=== PATIENT | male | born 1970 | race Caucasian/White ===

== ENCOUNTER 2017-01-09 13:56 | Emergency (ER) | payer OTHER ==
[~2017-01-09] VITALS: Ht 175.3 cm; Wt 115.0 kg
[~2017-01-09 13:56] MED LIST: ALBU8HFA4 IH; ASPI81TA2 PO; ATOR10TA84 PO; CARV6 PO; INSLAN SQ; LISI20TA PO; PRED10 PO
[2017-01-09 15:01] LABS: GLUCOSE,POINT OF CARE 346 MG/DL (70-110)
[2017-01-09 18:52] LABS: GLUCOSE,POINT OF CARE 249 MG/DL (70-110)
[2017-01-09 20:31] VITALS: BP 139/81
[2017-01-09] MEDS ORDERED: ACETAMINOPHEN 500 MG TABLET PO ONE (20:45)
== END 2017-01-09 20:58 | disposition home or self-care (01) ==
LOC: EMS 13:58
DX: S80.01XA Contusion of right knee, initial encounter (principal); S90.122A Contusion of left lesser toe(s) without damage to nail, initial encounter; I10 Essential (primary) hypertension; E78.00 Pure hypercholesterolemia, unspecified; J45.909 Unspecified asthma, uncomplicated; F17.210 Nicotine dependence, cigarettes, uncomplicated; E11.9 Type 2 diabetes mellitus without complications; Z79.82 Long term (current) use of aspirin; Z79.4 Long term (current) use of insulin; V09.9XXA Pedestrian injured in unspecified transport accident, initial encounter; Y93.89 Activity, other specified; Y92.89 Other specified places as the place of occurrence of the external cause; Y99.8 Other external cause status
CPT/HCPCS: 82962; 84550; 99285

== ENCOUNTER 2019-10-02 00:52 | Inpatient (IN) | payer OTHER ==
[~2019-10-02] VITALS: Ht 175.3 cm; Wt 110.0 kg
[~2019-10-02 00:52] MED LIST changes: -ASPI81TA2 PO; +ASPI81TA39 PO; +FLUT1BLS IH; +IPRA4AER IH
[2019-10-02] MEDS ORDERED: IPRATROPIUM BROMIDE 0.5 MG/2.5 ML NEB SOLUTION NEB ONE (01:15)
[2019-10-02] MEDS ORDERED: ACETAMINOPHEN 500 MG TABLET PO ONE (01:15)
[2019-10-02] MEDS ORDERED: ALBUTEROL SULFATE 2.5 MG/0.5 ML NEB SOLUTION NEB ONE (01:15)
[2019-10-02] MEDS ORDERED: 0.9% SODIUM CHLORIDE 5 ML NEB SOLUTION NEB ONE (01:21)
[2019-10-02 01:34] LABS: BASOPHILS % (AUTO) 0.8 % (0.0-2.0); EOSINOPHILS % (AUTO) 2.2 % (1.0-6.0); HEMATOCRIT 46.5 % (41-53); HEMOGLOBIN 15.4 g/dL (13.5-17.5); LYMPHOCYTES # (AUTO) 3.1 K/uL (1.0-4.8); LYMPHOCYTES % (AUTO) 30.8 % (22.0-44.0); MEAN CORPUSCULAR HGB CONC 33.1 G/dL (31.0-37.0); MEAN CORPUSCULAR VOLUME 91 fL (80-100); MONOCYTES % (AUTO) 10.1 % (2.0-9.0); NEUTROPHILS # (AUTO) 5.7 K/uL (1.8-7.7); NEUTROPHILS % (AUTO) 56.1 % (40.0-70.0); PLATELET COUNT (AUTO) 205 K/uL (150-450); RED BLOOD CELL COUNT(AUTO) 5.13 MIL/uL (4.50-5.90); RED CELL DISTRIBUTION WIDTH 14.2 % (11.5-14.5)
[2019-10-02 01:44] LABS: CALCIUM, TOTAL 8.5 mg/dL (8.8-10.5); CREATININE 2.09 mg/dL (0.60-1.30); POTASSIUM 3.9 mmol/L (3.5-5.1)
[2019-10-02 01:48] LABS: PROTHROMBIN TIME 9.8 SEC (9.4-11.6)
[2019-10-02 02:11] LABS: ALBUMIN 3.6 g/dL (3.4-5.0); BILIRUBIN,TOTAL 0.4 mg/dL (0.1-1.0); TOTAL PROTEIN, SERUM 7.3 g/dL (6.4-8.2)
[2019-10-02 02:13] LABS: APPEARANCE,URINE CLEAR (CLEAR); BILIRUBIN,URINE NEGATIVE (NEGATIVE); GLUCOSE, URINE (UA) 500 mg/dL (NEGATIVE); KETONES,URINE NEGATIVE (NEGATIVE); LEUKOCYTE ESTERASE ,URINE NEGATIVE (NEGATIVE); NITRATE,URINE NEGATIVE (NEGATIVE); OCCULT BLOOD,URINE NEGATIVE (NEGATIVE); PROTEIN,URINE SEE CONFIRM (NEGATIVE); UROBILINOGEN,URINE 0.2 mg/dL (<=1.0)
[2019-10-02 02:15] LABS: BACTERIA,URINE None Seen /HPF (None Seen); RBC,URINE None Seen /HPF (0-2); WBC,URINE 0-2 /HPF (0-5)
[2019-10-02 02:16] LABS: SQUAMOUS EPITHELIAL CELL,UR Rare /LPF (None Seen); SULFOSALICYLIC ACID,URINE Trace (Negative)
[2019-10-02] MEDS ORDERED: ASPIRIN 325 MG TABLET PO ONE (03:00)
[2019-10-02] MEDS ORDERED: 0.9% SODIUM CHLORIDE 10 ML SYRINGE IVP PRN (06:15)
[2019-10-02] MEDS ORDERED: ONDANSETRON HCL 4 MG/2 ML VIAL IVP PRN ×2 (06:15→06:30)
[2019-10-02] MEDS ORDERED: ACETAMINOPHEN 325 MG TABLET PO PRN ×2 (06:15→06:30)
[2019-10-02] MEDS ORDERED: IPRATROPIUM BROMIDE 0.5 MG/2.5 ML NEB SOLUTION NEB PRN (06:30)
[2019-10-02] MEDS ORDERED: DEXTROSE 50%-WATER 25 GM/50 ML SYRINGE IVP PRN ×2 (06:30→12:45)
[2019-10-02] MEDS ORDERED: MORPHINE SULFATE 2 MG/ML SYRINGE IVP PRN (06:30)
[2019-10-02] MEDS ORDERED: MAGNESIUM HYDROXIDE SUSPENSION 30 ML UDCUP PO PRN (06:30)
[2019-10-02] MEDS ORDERED: HYDROCODONE/ACETAMINOPHEN 5-325 MG TABLET PO PRN (06:30)
[2019-10-02] MEDS ORDERED: ZOLPIDEM TARTRATE 10 MG TABLET PO PRN (06:30)
[2019-10-02 10:29] VITALS: BP 108/68
[2019-10-02] MEDS: DOCUSATE SODIUM 100 MG CAPSULE PO SCH ×2 (10:29→23:02)
[2019-10-02] MEDS: ASPIRIN 81 MG CHEWABLE TABLET PO SCH (10:29)
[2019-10-02] MEDS: ATORVASTATIN CALCIUM 10 MG TABLET PO SCH (10:30)
[2019-10-02] MEDS: LISINOPRIL 20 MG TABLET PO SCH (10:30)
[2019-10-02] MEDS: CARVEDILOL 6.25 MG TABLET PO SCH ×2 (10:30→23:03)
[2019-10-02] MEDS: FLUTICASONE/VILANTEROL 200-25 MCG/INH INHALER [14] IH SCH (10:32)
[2019-10-02] MEDS: INSULIN GLARGINE,HUM.REC.ANLOG 100 UNITS/ML SQ SCH (10:37)
[2019-10-02 11:30] VITALS: BP 129/75
[2019-10-02] MEDS: NITROGLYCERIN 2% (1 GM=INCH) PACKET TP SCH ×2 (12:02→17:54)
[2019-10-02] MEDS: INSULIN LISPRO 100 UNITS/ML SQ PRN ×2 (13:23→17:58)
[2019-10-02] MEDS: GABAPENTIN 300 MG CAPSULE PO SCH ×2 (15:10→23:02)
[2019-10-02] MEDS: NICOTINE 21 MG/24 HOUR PATCH TD SCH (15:10)
[2019-10-02 15:35] VITALS: BP 132/69
[2019-10-02 17:55] LABS: GLUCOMETER DEV NAME(LOC) 5S.2A; GLUCOSE,POINT OF CARE 315 MG/DL (70-110)
[2019-10-02 20:18] VITALS: BP 152/71
[2019-10-02 20:59] LABS: AMPHET/METH SCREEN,URINE POSITIVE (NEGATIVE); BARBITURATE SCREEN, URINE NEGATIVE (NEGATIVE); BENZODIAZEPINES SCREEN,URINE NEGATIVE (NEGATIVE); CANNABINOID SCREEN,URINE NEGATIVE (NEGATIVE); COCAINE SCREEN,URINE NEGATIVE (NEGATIVE); METHADONE SCREEN, URINE NEGATIVE (NEGATIVE); OPIATE SCREEN,URINE NEGATIVE (NEGATIVE)
[2019-10-02 21:00] LABS: PHENCYCLIDINE SCREEN,URINE NEGATIVE (NEGATIVE)
[2019-10-02 22:31] LABS: GLUCOMETER DEV NAME(LOC) 5S.1; GLUCOSE,POINT OF CARE 140 MG/DL (70-110)
[2019-10-02 22:31] LABS: GLUCOMETER DEV NAME(LOC) 5S.1; GLUCOSE,POINT OF CARE 286 MG/DL (70-110)
[2019-10-02 23:19] LABS: GLUCOMETER DEV NAME(LOC) 5S.1; GLUCOSE,POINT OF CARE 178 MG/DL (70-110)
[2019-10-03 00:01] VITALS: BP 128/59
[2019-10-03 05:13] VITALS: BP 133/78
[2019-10-03] MEDS: NITROGLYCERIN 2% (1 GM=INCH) PACKET TP SCH ×4 (06:00→16:32)
[2019-10-03 06:37] LABS: GLUCOMETER DEV NAME(LOC) 5S.1; GLUCOSE,POINT OF CARE 202 MG/DL (70-110)
[2019-10-03 07:17] LABS: BASOPHILS % (AUTO) 0.6 % (0.0-2.0); EOSINOPHILS % (AUTO) 2.7 % (1.0-6.0); HEMATOCRIT 43.7 % (41-53); HEMOGLOBIN 14.8 g/dL (13.5-17.5); LYMPHOCYTES # (AUTO) 1.8 K/uL (1.0-4.8); LYMPHOCYTES % (AUTO) 27.8 % (22.0-44.0); MEAN CORPUSCULAR HEMOGLOBIN 30.7 pg (26.0-34.0); MEAN CORPUSCULAR HGB CONC 33.9 G/dL (31.0-37.0); MEAN CORPUSCULAR VOLUME 91 fL (80-100); MONOCYTES # (AUTO) 0.6 K/uL (0.1-1.0); MONOCYTES % (AUTO) 10.1 % (2.0-9.0); NEUTROPHILS # (AUTO) 3.8 K/uL (1.8-7.7); NEUTROPHILS % (AUTO) 58.8 % (40.0-70.0); PLATELET COUNT (AUTO) 167 K/uL (150-450); RED BLOOD CELL COUNT(AUTO) 4.81 MIL/uL (4.50-5.90)
[2019-10-03 07:27] VITALS: BP 108/58
[2019-10-03 07:42] LABS: ALANINE AMINOTRANSFERASE 18 U/L (12-78); ALBUMIN 2.7 g/dL (3.4-5.0); ALKALINE PHOSPHATASE 111 U/L (46-116); ANION GAP 5 mmol/L (8-16); ASPARTATE AMINOTRANSFERASE 14 U/L (15-37); BILIRUBIN,TOTAL 0.3 mg/dL (0.1-1.0); CALCIUM, TOTAL 8.2 mg/dL (8.8-10.5); CARBON DIOXIDE 29 mmol/L (22-29); CHLORIDE 104 mmol/L (98-107); CHOL/HDL RATIO 3.7 (4.2-7.3); CHOLESTEROL 154 mg/dL (131-200); CREATININE 1.09 mg/dL (0.60-1.30); GLOMERULAR FILTR. RATE CALC > 60 mL/min (>60); GLUCOSE,RANDOM 218 mg/dL (70-110); HDL CHOLESTEROL 42 mg/dL (40-60); LDL CHOL (CALC.) 86 mg/dL (0-130); POTASSIUM 3.9 mmol/L (3.5-5.1); SODIUM SERUM 138 mmol/L (136-145); TOTAL PROTEIN, SERUM 5.7 g/dL (6.4-8.2); TRIGLYCERIDES 128 mg/dL (15-150); UREA NITROGEN, BLOOD 20 mg/dL (7-18)
[2019-10-03] MEDS: ASPIRIN 81 MG CHEWABLE TABLET PO SCH (08:33)
[2019-10-03] MEDS: NICOTINE 21 MG/24 HOUR PATCH TD SCH (08:33)
[2019-10-03] MEDS: DOCUSATE SODIUM 100 MG CAPSULE PO SCH (08:33)
[2019-10-03] MEDS: CARVEDILOL 6.25 MG TABLET PO SCH (08:33)
[2019-10-03] MEDS: ATORVASTATIN CALCIUM 10 MG TABLET PO SCH (08:33)
[2019-10-03] MEDS: GABAPENTIN 300 MG CAPSULE PO SCH ×2 (08:33→16:31)
[2019-10-03] MEDS: FLUTICASONE/VILANTEROL 200-25 MCG/INH INHALER [14] IH SCH (08:34)
[2019-10-03] MEDS: LISINOPRIL 20 MG TABLET PO SCH (08:37)
[2019-10-03] MEDS: INSULIN GLARGINE,HUM.REC.ANLOG 100 UNITS/ML SQ SCH (08:37)
[2019-10-03 08:53] LABS: GLUCOMETER DEV NAME(LOC) 5S.1; GLUCOSE,POINT OF CARE 215 MG/DL (70-110)
[2019-10-03] MEDS: INSULIN LISPRO 100 UNITS/ML SQ PRN ×2 (11:39→18:08)
[2019-10-03 11:52] VITALS: BP 146/71
[2019-10-03 15:14] VITALS: BP 138/66
[2019-10-03 17:15] LABS: GLUCOMETER DEV NAME(LOC) 5N.2; GLUCOSE,POINT OF CARE 265 MG/DL (70-110)
[2019-10-03 18:17] LABS: GLUCOMETER DEV NAME(LOC) 5N.1; GLUCOSE,POINT OF CARE 287 MG/DL (70-110)
== END 2019-10-03 19:00 | disposition home or self-care (01) | DRG 812 ==
LOC: EMS 00:54 → 5S 05:17
PROVIDERS: ADMIT Hospitalist; ATTEND Hospitalist
DX: T43.621A Poisoning by amphetamines, accidental (unintentional), initial encounter (principal); N17.9 Acute kidney failure, unspecified; E11.40 Type 2 diabetes mellitus with diabetic neuropathy, unspecified; I24.8 Other forms of acute ischemic heart disease; E66.01 Morbid (severe) obesity due to excess calories; I11.0 Hypertensive heart disease with heart failure; I50.9 Heart failure, unspecified; F19.10 Other psychoactive substance abuse, uncomplicated; J44.9 Chronic obstructive pulmonary disease, unspecified; E78.00 Pure hypercholesterolemia, unspecified; E78.5 Hyperlipidemia, unspecified; F10.10 Alcohol abuse, uncomplicated; F15.10 Other stimulant abuse, uncomplicated; F17.200 Nicotine dependence, unspecified, uncomplicated; I25.10 Atherosclerotic heart disease of native coronary artery without angina pectoris; F32.9 Major depressive disorder, single episode, unspecified; Z79.4 Long term (current) use of insulin; Z91.14 Patient's other noncompliance with medication regimen; Z91.19 Patient's noncompliance with other medical treatment and regimen; Z95.5 Presence of coronary angioplasty implant and graft; Z79.899 Other long term (current) drug therapy; Z68.35 Body mass index [BMI] 35.0-35.9, adult; Y90.9 Presence of alcohol in blood, level not specified
CPT/HCPCS: 80307; 83735; 93005; 93306; 93880; 93925; 93970; 94640; G0480; J1815

== ENCOUNTER 2020-02-09 14:15 | Emergency (ER) | payer OTHER ==
[~2020-02-09] VITALS: Ht 175.3 cm; Wt 113.6 kg
[~2020-02-09 14:15] MED LIST changes: -INSLAN SQ; -IPRA4AER IH; -LISI20TA PO; -PRED10 PO
[2020-02-09] MEDS ORDERED: ACETAMINOPHEN 500 MG TABLET PO ONE (15:45)
[2020-02-09] MEDS ORDERED: INSULIN REGULAR, HUMAN 100 UNITS/ML SQ ONE (15:45)
[2020-02-09 16:20] VITALS: BP 144/93
[2020-02-09 17:39] LABS: GLUCOSE,POINT OF CARE 318 MG/DL (70-110)
[2020-02-09 17:39] LABS: GLUCOSE,POINT OF CARE 282 MG/DL (70-110)
== END 2020-02-09 18:15 | disposition home or self-care (01) ==
LOC: EMS 14:16
DX: S90.412A Abrasion, left great toe, initial encounter (principal); M25.462 Effusion, left knee; E11.65 Type 2 diabetes mellitus with hyperglycemia; F17.210 Nicotine dependence, cigarettes, uncomplicated; J45.909 Unspecified asthma, uncomplicated; I25.10 Atherosclerotic heart disease of native coronary artery without angina pectoris; F32.9 Major depressive disorder, single episode, unspecified; E11.9 Type 2 diabetes mellitus without complications; I11.9 Hypertensive heart disease without heart failure; E78.00 Pure hypercholesterolemia, unspecified; Z79.82 Long term (current) use of aspirin; X58.XXXA Exposure to other specified factors, initial encounter; Y93.89 Activity, other specified; Y92.89 Other specified places as the place of occurrence of the external cause; Y99.8 Other external cause status
CPT/HCPCS: 71045; 73562; 82962; 96372; 99284; 99406; J1815

== ENCOUNTER 2020-03-03 12:26 | Emergency (ER) | payer OTHER ==
[~2020-03-03] VITALS: Ht 175.3 cm; Wt 115.9 kg
[2020-03-03] MEDS ORDERED: ALBUTEROL SULFATE HFA 90 MCG/PUFF 8 GM INHALER IH ONE (14:00)
[2020-03-03] MEDS ORDERED: KETOROLAC TROMETHAMINE 60 MG/2 ML VIAL IM ONE (14:00)
[2020-03-03] MEDS ORDERED: FLUT1AER IH (14:05)
[2020-03-03] MEDS ORDERED: ALBU8HFA IH (14:05)
[2020-03-03] MEDS ORDERED: HYDR25TA84 PO (14:05)
[2020-03-03] MEDS ORDERED: POTA8TAB71 PO (14:05)
[2020-03-03] MEDS ORDERED: LISI30TA4 PO (14:05)
[2020-03-03] MEDS ORDERED: FURO20TA4 PO (14:05)
[2020-03-03] MEDS ORDERED: ASPI-1111 PO (14:05)
[2020-03-03 14:23] VITALS: BP 149/82
== END 2020-03-03 15:48 | disposition home or self-care (01) ==
LOC: EMS 12:30
DX: S20.211A Contusion of right front wall of thorax, initial encounter (principal); F17.210 Nicotine dependence, cigarettes, uncomplicated; F15.90 Other stimulant use, unspecified, uncomplicated; I11.9 Hypertensive heart disease without heart failure; E78.00 Pure hypercholesterolemia, unspecified; E11.9 Type 2 diabetes mellitus without complications; I25.10 Atherosclerotic heart disease of native coronary artery without angina pectoris; J44.9 Chronic obstructive pulmonary disease, unspecified; W22.8XXA Striking against or struck by other objects, initial encounter; Y93.89 Activity, other specified; Y92.89 Other specified places as the place of occurrence of the external cause; Y99.8 Other external cause status
CPT/HCPCS: 71101; 82962; 94640; 96372; 99283; G0238; J1885; J3535

== ENCOUNTER 2020-03-08 15:08 | Emergency (ER) | payer OTHER ==
[~2020-03-08] VITALS: Ht 175.3 cm; Wt 120.5 kg
[~2020-03-08 15:08] MED LIST changes: +ALBU8HFA IH; -ALBU8HFA4 IH; +ASPI-1111 PO; -ASPI81TA39 PO; +FLUT1AER IH; -FLUT1BLS IH; +FURO20TA4 PO; +HYDR25TA84 PO; +LISI30TA4 PO; +POTA8TAB71 PO
[2020-03-08] MEDS ORDERED: INSULIN REGULAR, HUMAN 100 UNITS/ML IVP ONE (15:45)
[2020-03-08] MEDS ORDERED: KETOROLAC TROMETHAMINE 30 MG/ML VIAL IVP ONE (15:45)
[2020-03-08] MEDS ORDERED: ACETAMINOPHEN 500 MG TABLET PO ONE (15:45)
[2020-03-08] MEDS ORDERED: LIDOCAINE 5% TRANSDERMAL PATCH TD ONE (15:45)
[2020-03-08] MEDS ORDERED: SODIUM CHLORIDE 0.9% 1,000 ML IV ONE (15:45)
[2020-03-08 15:48] LABS: GLUCOSE,POINT OF CARE 405 MG/DL (70-110)
[2020-03-08 16:13] VITALS: BP 162/92
[2020-03-08 17:45] LABS: GLUCOSE,POINT OF CARE 190 MG/DL (70-110)
== END 2020-03-08 17:59 | disposition home or self-care (01) ==
LOC: EMS 15:12
DX: R07.81 Pleurodynia (principal); I10 Essential (primary) hypertension; E11.65 Type 2 diabetes mellitus with hyperglycemia; J45.909 Unspecified asthma, uncomplicated; I25.10 Atherosclerotic heart disease of native coronary artery without angina pectoris; F32.9 Major depressive disorder, single episode, unspecified; I11.9 Hypertensive heart disease without heart failure; E78.00 Pure hypercholesterolemia, unspecified; F17.210 Nicotine dependence, cigarettes, uncomplicated; F19.90 Other psychoactive substance use, unspecified, uncomplicated; Z79.82 Long term (current) use of aspirin; Z79.899 Other long term (current) drug therapy
CPT/HCPCS: 82962; 96361; 96374; 96375; 99284; 99406; J1815; J1885; J7030

== ENCOUNTER 2021-09-01 18:52 | Inpatient (IN) | payer OTHER ==
[~2021-09-01] VITALS: Ht 175.3 cm; Wt 116.5 kg
[~2021-09-01 18:52] MED LIST changes: -ASPI-1111 PO; +ASPI-1450 PO; -ATOR10TA84 PO; +ATOR20TA65 PO; +BUME1TAB6 PO; -CARV6 PO; -FURO20TA4 PO; -HYDR25TA84 PO; +INSLAN SQ; +ISOS1TAB2 PO; -LISI30TA4 PO; +LOSA25TA2 PO; +PANT-31 PO; +SYRI-590 SQ
[2021-09-01] MEDS ORDERED: ACETAMINOPHEN 500 MG TABLET PO ONE (19:30)
[2021-09-01 19:56] LABS: COVID AG,FIA SOURCE NASOPHARYNGEAL
[2021-09-01 19:59] LABS: BASOPHILS % (AUTO) 0.3 % (0.0-2.0); EOSINOPHILS % (AUTO) 0 % (1.0-6.0); HEMATOCRIT 52.6 % (41-53); HEMOGLOBIN 16.5 g/dL (13.5-17.5); LYMPHOCYTES # (AUTO) 1.7 K/uL (1.0-4.8); MEAN CORPUSCULAR HEMOGLOBIN 28.8 pg (26.0-34.0); MEAN CORPUSCULAR HGB CONC 31.4 G/dL (31.0-37.0); MEAN CORPUSCULAR VOLUME 92 fL (80-100); MONOCYTES # (AUTO) 1.4 K/uL (0.1-1.0); MONOCYTES % (AUTO) 9.1 % (2.0-9.0); NEUTROPHILS # (AUTO) 12.4 K/uL (1.8-7.7); NEUTROPHILS % (AUTO) 79.6 % (40.0-70.0); PLATELET COUNT (AUTO) 171 K/uL (150-450); RED BLOOD CELL COUNT(AUTO) 5.74 MIL/uL (4.50-5.90); RED CELL DISTRIBUTION WIDTH 15.1 % (11.5-14.5)
[2021-09-01 20:15] LABS: D-DIMER 3.41 mg/L FEU (0.00-0.50); INR 1.2 (0.9-1.1); PROTHROMBIN TIME 12.2 SEC (9.4-11.6)
[2021-09-01] MEDS ORDERED: SODIUM CHLORIDE 0.9% 1,000 ML IV ONE (20:30)
[2021-09-01] MEDS ORDERED: VANCOMYCIN HCL 1 GM/D5% WATER 200 ML IV ONE (20:30)
[2021-09-01 20:33] LABS: ALBUMIN 2.9 g/dL (3.4-5.0); BILIRUBIN,TOTAL 1.4 mg/dL (0.1-1.0); CALCIUM, TOTAL 8.9 mg/dL (8.8-10.5); CREATININE 2.07 mg/dL (0.60-1.30); PHOSPHORUS 2.9 mg/dL (2.5-4.9); POTASSIUM 4.5 mmol/L (3.5-5.1); TOTAL PROTEIN, SERUM 9.1 g/dL (6.4-8.2)
[2021-09-01 21:08] LABS: ERYTHROCYTE SEDIMENTATION RATE 36 MM/HR (0-15)
[2021-09-01] MEDS ORDERED: ACETAMINOPHEN 325 MG TABLET PO PRN ×2 (21:15→21:45)
[2021-09-01] MEDS ORDERED: ONDANSETRON HCL 4 MG/2 ML VIAL IVP PRN ×2 (21:15→21:45)
[2021-09-01] MEDS ORDERED: LORazepam 2 MG/ML VIAL IVP PRN (21:45)
[2021-09-01] MEDS ORDERED: DEXTROSE 50%-WATER 25 GM/50 ML SYRINGE IVP PRN (21:45)
[2021-09-01 22:20] VITALS: BP 125/73
[2021-09-01] MEDS: INSULIN LISPRO 100 UNITS/ML SQ PRN (22:26)
[2021-09-01] MEDS: FUROSEMIDE 20 MG/2 ML VIAL IVP SCH (22:26)
[2021-09-01] MEDS: ASPIRIN 81 MG CHEWABLE TABLET PO SCH (22:28)
[2021-09-01] MEDS: ZOLPIDEM TARTRATE 5 MG TABLET PO PRN (22:56)
[2021-09-01 23:46] VITALS: BP 135/71
[2021-09-01] MEDS: HEPARIN SODIUM,PORCINE 5,000 UNITS/ML VIAL SQ SCH (23:47)
[2021-09-02] MEDS ORDERED: VANCOMYCIN HCL 1 GM/D5% WATER 200 ML IV ONE
[2021-09-02 03:58] VITALS: BP 110/76
[2021-09-02 04:14] LABS: GLUCOMETER DEV NAME(LOC) 5N.1C; GLUCOSE,POINT OF CARE 246 MG/DL (70-110)
[2021-09-02] MEDS: OxyCODONE HCL/ACETAMINOPHEN 5-325 MG TABLET PO PRN ×2 (06:12→20:30)
[2021-09-02] MEDS: INSULIN LISPRO 100 UNITS/ML SQ PRN ×4 (06:13→20:35)
[2021-09-02 07:04] LABS: CALCIUM, TOTAL 8.4 mg/dL (8.8-10.5); CREATININE 2.08 mg/dL (0.60-1.30); POTASSIUM 4.2 mmol/L (3.5-5.1)
[2021-09-02 07:23] VITALS: BP 103/71
[2021-09-02 08:03] LABS: GLUCOMETER DEV NAME(LOC) 5S.1; GLUCOSE,POINT OF CARE 207 MG/DL (70-110)
[2021-09-02] MEDS: HEPARIN SODIUM,PORCINE 5,000 UNITS/ML VIAL SQ SCH ×3 (08:40→23:42)
[2021-09-02] MEDS: VANCOMYCIN HCL 750 MG in DEXTROSE 5%-WATER 250 ML IV SCH ×2 (08:40→19:51)
[2021-09-02] MEDS: DOCUSATE SODIUM 100 MG CAPSULE PO SCH ×2 (08:40→19:51)
[2021-09-02] MEDS: FAMOTIDINE 20 MG TABLET PO SCH (08:40)
[2021-09-02] MEDS: FUROSEMIDE 20 MG/2 ML VIAL IVP SCH ×2 (08:40→19:50)
[2021-09-02] MEDS: MORPHINE SULFATE 2 MG/ML SYRINGE IVP PRN ×2 (11:22→15:59)
[2021-09-02 11:48] VITALS: BP 108/69
[2021-09-02 11:55] LABS: AMPHET/METH SCREEN,URINE NEGATIVE (NEGATIVE); BARBITURATE SCREEN, URINE NEGATIVE (NEGATIVE); BENZODIAZEPINES SCREEN,URINE NEGATIVE (NEGATIVE); CANNABINOID SCREEN,URINE NEGATIVE (NEGATIVE); COCAINE SCREEN,URINE NEGATIVE (NEGATIVE); METHADONE SCREEN, URINE NEGATIVE (NEGATIVE); OPIATE SCREEN,URINE NEGATIVE (NEGATIVE)
[2021-09-02 11:57] LABS: PHENCYCLIDINE SCREEN,URINE NEGATIVE (NEGATIVE)
[2021-09-02 12:10] LABS: GLUCOMETER DEV NAME(LOC) 5N.1C; GLUCOSE,POINT OF CARE 262 MG/DL (70-110)
[2021-09-02] MEDS ORDERED: INFLUENZA VIRUS VACCINE QVS 2021-22 (6MO+)/PF 60 MCG/0.5 ML SYRINGE IM. ONE (15:00)
[2021-09-02 16:51] VITALS: BP 116/72
[2021-09-02 17:30] LABS: GLUCOMETER DEV NAME(LOC) 5N.1C; GLUCOSE,POINT OF CARE 194 MG/DL (70-110)
[2021-09-02] MEDS: ASPIRIN 81 MG CHEWABLE TABLET PO SCH (19:51)
[2021-09-02 20:39] VITALS: BP 106/72
[2021-09-02] MEDS: ZOLPIDEM TARTRATE 5 MG TABLET PO PRN (23:42)
[2021-09-03 00:09] VITALS: BP 108/72
[2021-09-03 06:13] VITALS: BP 104/69
[2021-09-03 06:58] LABS: BASOPHILS % (AUTO) 0.2 % (0.0-2.0); EOSINOPHILS % (AUTO) 0.6 % (1.0-6.0); HEMATOCRIT 42.5 % (41-53); HEMOGLOBIN 13.6 g/dL (13.5-17.5); LYMPHOCYTES # (AUTO) 1.4 K/uL (1.0-4.8); LYMPHOCYTES % (AUTO) 11.1 % (22.0-44.0); MEAN CORPUSCULAR HEMOGLOBIN 29.4 pg (26.0-34.0); MEAN CORPUSCULAR HGB CONC 31.9 G/dL (31.0-37.0); MEAN CORPUSCULAR VOLUME 92 fL (80-100); MONOCYTES # (AUTO) 1.2 K/uL (0.1-1.0); MONOCYTES % (AUTO) 9.3 % (2.0-9.0); NEUTROPHILS % (AUTO) 78.8 % (40.0-70.0); PLATELET COUNT (AUTO) 142 K/uL (150-450); RED BLOOD CELL COUNT(AUTO) 4.62 MIL/uL (4.50-5.90)
[2021-09-03 07:03] LABS: CALCIUM, TOTAL 7.9 mg/dL (8.8-10.5); CREATININE 1.73 mg/dL (0.60-1.30)
[2021-09-03 07:04] LABS: GLUCOMETER DEV NAME(LOC) 5N.1C; GLUCOSE,POINT OF CARE 183 MG/DL (70-110)
[2021-09-03 07:04] LABS: GLUCOMETER DEV NAME(LOC) 5N.1C; GLUCOSE,POINT OF CARE 162 MG/DL (70-110)
[2021-09-03 08:10] VITALS: BP 99/70
[2021-09-03] MEDS: VANCOMYCIN HCL 750 MG in DEXTROSE 5%-WATER 250 ML IV SCH ×2 (08:24→20:55)
[2021-09-03] MEDS: FAMOTIDINE 20 MG TABLET PO SCH (08:25)
[2021-09-03] MEDS: HEPARIN SODIUM,PORCINE 5,000 UNITS/ML VIAL SQ SCH ×3 (08:25→23:52)
[2021-09-03] MEDS: OxyCODONE HCL/ACETAMINOPHEN 5-325 MG TABLET PO PRN ×2 (08:25→21:09)
[2021-09-03] MEDS: DOCUSATE SODIUM 100 MG CAPSULE PO SCH ×2 (08:26→20:55)
[2021-09-03] MEDS: FUROSEMIDE 20 MG/2 ML VIAL IVP SCH (08:26)
[2021-09-03] MEDS: INSULIN LISPRO 100 UNITS/ML SQ PRN ×4 (08:30→21:04)
[2021-09-03 11:43] VITALS: BP 110/38
[2021-09-03 12:25] LABS: GLUCOMETER DEV NAME(LOC) 5N.1C; GLUCOSE,POINT OF CARE 240 MG/DL (70-110)
[2021-09-03 15:37] VITALS: BP 109/63
[2021-09-03 17:56] LABS: GLUCOMETER DEV NAME(LOC) 5N.1C; GLUCOSE,POINT OF CARE 267 MG/DL (70-110)
[2021-09-03 20:53] VITALS: BP 130/65
[2021-09-03] MEDS: ASPIRIN 81 MG CHEWABLE TABLET PO SCH (20:54)
[2021-09-03] MEDS: FUROSEMIDE 40 MG/4 ML VIAL IVP SCH (20:55)
[2021-09-03] MEDS: BENZONATATE 100 MG CAPSULE PO PRN (23:52)
[2021-09-04 00:29] VITALS: BP 108/73
[2021-09-04 03:01] LABS: GLUCOMETER DEV NAME(LOC) 5N.1C; GLUCOSE,POINT OF CARE 194 MG/DL (70-110)
[2021-09-04] MEDS: OxyCODONE HCL/ACETAMINOPHEN 5-325 MG TABLET PO PRN ×3 (05:24→22:44)
[2021-09-04 05:25] VITALS: BP 131/67
[2021-09-04] MEDS: INSULIN LISPRO 100 UNITS/ML SQ PRN ×4 (06:01→22:32)
[2021-09-04 06:48] LABS: CALCIUM, TOTAL 8.2 mg/dL (8.8-10.5); CREATININE 1.38 mg/dL (0.60-1.30); POTASSIUM 4.1 mmol/L (3.5-5.1)
[2021-09-04 08:08] VITALS: BP 115/65
[2021-09-04 08:33] LABS: GLUCOMETER DEV NAME(LOC) 5S.2B; GLUCOSE,POINT OF CARE 143 MG/DL (70-110)
[2021-09-04] MEDS: DOCUSATE SODIUM 100 MG CAPSULE PO SCH ×2 (08:37→20:26)
[2021-09-04] MEDS: FAMOTIDINE 20 MG TABLET PO SCH (08:37)
[2021-09-04] MEDS: FUROSEMIDE 40 MG/4 ML VIAL IVP SCH ×2 (08:37→20:25)
[2021-09-04] MEDS: HEPARIN SODIUM,PORCINE 5,000 UNITS/ML VIAL SQ SCH ×2 (08:37→17:23)
[2021-09-04] MEDS: VANCOMYCIN HCL 750 MG in DEXTROSE 5%-WATER 250 ML IV SCH ×2 (08:38→20:16)
[2021-09-04] MEDS: APIXABAN 5 MG TABLET PO SCH ×2 (08:49→20:17)
[2021-09-04] MEDS: ISOSORB DINIT/HYDRALAZINE HCL 20-37.5 MG TABLET PO SCH ×3 (09:00→20:26)
[2021-09-04 11:48] VITALS: BP 127/78
[2021-09-04 16:01] VITALS: BP 115/59
[2021-09-04] MEDS: BENZONATATE 100 MG CAPSULE PO PRN (17:23)
[2021-09-04] MEDS: ASPIRIN 81 MG CHEWABLE TABLET PO SCH (20:17)
[2021-09-04] MEDS: METOPROLOL SUCCINATE 25 MG ER TABLET PO SCH (20:26)
[2021-09-04 20:28] VITALS: BP 122/60
[2021-09-04] MEDS: ZOLPIDEM TARTRATE 5 MG TABLET PO PRN (22:31)
[2021-09-04 23:19] LABS: GLUCOMETER DEV NAME(LOC) 5N.1C; GLUCOSE,POINT OF CARE 200 MG/DL (70-110)
[2021-09-04 23:19] LABS: GLUCOMETER DEV NAME(LOC) 5N.1C; GLUCOSE,POINT OF CARE 259 MG/DL (70-110)
[2021-09-04 23:19] LABS: GLUCOMETER DEV NAME(LOC) 5N.1C; GLUCOSE,POINT OF CARE 142 MG/DL (70-110)
[2021-09-05] VITALS (7 sets, daily range): BP systolic 109–152; BP diastolic 65–84
[2021-09-05] MEDS: HEPARIN SODIUM,PORCINE 5,000 UNITS/ML VIAL SQ SCH ×4 (00:13→23:09)
[2021-09-05] MEDS: BENZONATATE 100 MG CAPSULE PO PRN ×2 (03:49→11:48)
[2021-09-05] MEDS: INSULIN LISPRO 100 UNITS/ML SQ PRN ×4 (06:36→20:45)
[2021-09-05 06:38] LABS: BASOPHILS % (AUTO) 0.5 % (0.0-2.0); EOSINOPHILS % (AUTO) 1.4 % (1.0-6.0); HEMATOCRIT 43.2 % (41-53); HEMOGLOBIN 13.9 g/dL (13.5-17.5); LYMPHOCYTES # (AUTO) 1.4 K/uL (1.0-4.8); LYMPHOCYTES % (AUTO) 12.7 % (22.0-44.0); MEAN CORPUSCULAR HEMOGLOBIN 29.6 pg (26.0-34.0); MEAN CORPUSCULAR HGB CONC 32.2 G/dL (31.0-37.0); MEAN CORPUSCULAR VOLUME 92 fL (80-100); MONOCYTES % (AUTO) 8.6 % (2.0-9.0); NEUTROPHILS # (AUTO) 8.6 K/uL (1.8-7.7); NEUTROPHILS % (AUTO) 76.8 % (40.0-70.0); PLATELET COUNT (AUTO) 191 K/uL (150-450); RED BLOOD CELL COUNT(AUTO) 4.69 MIL/uL (4.50-5.90); RED CELL DISTRIBUTION WIDTH 15.2 % (11.5-14.5)
[2021-09-05 06:52] LABS: ALBUMIN 1.9 g/dL (3.4-5.0); BILIRUBIN,TOTAL 0.3 mg/dL (0.1-1.0); CALCIUM, TOTAL 8.2 mg/dL (8.8-10.5); CREATININE 1.28 mg/dL (0.60-1.30); MAGNESIUM 1.8 mg/dL (1.80-2.40); POTASSIUM 4.3 mmol/L (3.5-5.1); TOTAL PROTEIN, SERUM 6.5 g/dL (6.4-8.2)
[2021-09-05] MEDS: VANCOMYCIN HCL 750 MG in DEXTROSE 5%-WATER 250 ML IV SCH ×2 (08:16→21:02)
[2021-09-05] MEDS: FUROSEMIDE 40 MG/4 ML VIAL IVP SCH ×2 (08:17→21:02)
[2021-09-05] MEDS: FAMOTIDINE 20 MG TABLET PO SCH (08:21)
[2021-09-05] MEDS: ISOSORB DINIT/HYDRALAZINE HCL 20-37.5 MG TABLET PO SCH ×4 (08:21→20:48)
[2021-09-05] MEDS: APIXABAN 5 MG TABLET PO SCH ×2 (08:21→20:47)
[2021-09-05] MEDS: DOCUSATE SODIUM 100 MG CAPSULE PO SCH ×2 (09:00→20:46)
[2021-09-05] MEDS: MULTIVITAMINS WITH MINERALS, THERAPEUTIC TABLET PO SCH (11:47)
[2021-09-05] MEDS: OxyCODONE HCL/ACETAMINOPHEN 5-325 MG TABLET PO PRN (17:43)
[2021-09-05 20:15] LABS: GLUCOMETER DEV NAME(LOC) 5N.1C; GLUCOSE,POINT OF CARE 231 MG/DL (70-110)
[2021-09-05 20:15] LABS: GLUCOMETER DEV NAME(LOC) 5S.2B; GLUCOSE,POINT OF CARE 219 MG/DL (70-110)
[2021-09-05 20:16] LABS: GLUCOMETER DEV NAME(LOC) 5S.2B; GLUCOSE,POINT OF CARE 214 MG/DL (70-110)
[2021-09-05] MEDS: METOPROLOL SUCCINATE 25 MG ER TABLET PO SCH (20:47)
[2021-09-05] MEDS: ASPIRIN 81 MG CHEWABLE TABLET PO SCH (20:47)
[2021-09-05] MEDS: MORPHINE SULFATE 2 MG/ML SYRINGE IVP PRN (20:53)
[2021-09-05 22:04] LABS: GLUCOMETER DEV NAME(LOC) 5N.1C; GLUCOSE,POINT OF CARE 188 MG/DL (70-110)
[2021-09-06 03:40] VITALS: BP 93/64
[2021-09-06] MEDS: INSULIN LISPRO 100 UNITS/ML SQ PRN ×4 (05:50→20:28)
[2021-09-06 06:50] LABS: GLUCOMETER DEV NAME(LOC) 5S.2B; GLUCOSE,POINT OF CARE 212 MG/DL (70-110)
[2021-09-06 06:56] LABS: CALCIUM, TOTAL 8.1 mg/dL (8.8-10.5); CARBON DIOXIDE 32 mmol/L (22-29); CHLORIDE 99 mmol/L (98-107); CREATININE 1.23 mg/dL (0.60-1.30); GLOMERULAR FILTR. RATE CALC > 60 mL/min (>60); GLUCOSE,RANDOM 263 mg/dL (70-110); UREA NITROGEN, BLOOD 20 mg/dL (7-18); VANCOMYCIN,RANDOM 14.2 mcg/mL (25.0-50.0)
[2021-09-06 07:03] LABS: ANION GAP 1 mmol/L (8-16); POTASSIUM 4.4 mmol/L (3.5-5.1); SODIUM SERUM 132 mmol/L (136-145)
[2021-09-06 08:13] VITALS: BP 124/61
[2021-09-06] MEDS: FUROSEMIDE 40 MG/4 ML VIAL IVP SCH ×2 (08:23→20:26)
[2021-09-06] MEDS: DOCUSATE SODIUM 100 MG CAPSULE PO SCH ×3 (08:23→20:37)
[2021-09-06] MEDS: APIXABAN 5 MG TABLET PO SCH ×2 (08:23→20:26)
[2021-09-06] MEDS: VANCOMYCIN HCL 750 MG in DEXTROSE 5%-WATER 250 ML IV SCH (08:23)
[2021-09-06] MEDS: MULTIVITAMINS WITH MINERALS, THERAPEUTIC TABLET PO SCH (08:24)
[2021-09-06] MEDS: FAMOTIDINE 20 MG TABLET PO SCH (08:24)
[2021-09-06 11:34] VITALS: BP 142/71
[2021-09-06] MEDS: OxyCODONE HCL/ACETAMINOPHEN 5-325 MG TABLET PO PRN ×2 (11:39→17:25)
[2021-09-06 12:44] LABS: GLUCOMETER DEV NAME(LOC) 5N.1C; GLUCOSE,POINT OF CARE 243 MG/DL (70-110)
[2021-09-06 16:30] VITALS: BP 129/96
[2021-09-06 18:00] LABS: GLUCOMETER DEV NAME(LOC) 5S.1; GLUCOSE,POINT OF CARE 292 MG/DL (70-110)
[2021-09-06 20:02] VITALS: BP 139/87
[2021-09-06] MEDS: METOPROLOL SUCCINATE 25 MG ER TABLET PO SCH (20:27)
[2021-09-06] MEDS ORDERED: SODIUM CHLORIDE 0.9% 250 ML IV ONE (20:31)
[2021-09-06] MEDS: VANCOMYCIN HCL 1.25 GM in DEXTROSE 5%-WATER 250 ML IV SCH (20:38)
[2021-09-07] VITALS (8 sets, daily range): BP systolic 119–180; BP diastolic 73–100
[2021-09-07] MEDS: OxyCODONE HCL/ACETAMINOPHEN 5-325 MG TABLET PO PRN ×2 (05:14→12:21)
[2021-09-07] MEDS: BENZONATATE 100 MG CAPSULE PO PRN ×2 (05:14→20:48)
[2021-09-07] MEDS: INSULIN LISPRO 100 UNITS/ML SQ PRN ×4 (05:43→20:49)
[2021-09-07 07:24] LABS: ANION GAP 2 mmol/L (8-16); CALCIUM, TOTAL 8.5 mg/dL (8.8-10.5); CARBON DIOXIDE 34 mmol/L (22-29); CHLORIDE 99 mmol/L (98-107); CREATININE 1.21 mg/dL (0.60-1.30); GLOMERULAR FILTR. RATE CALC > 60 mL/min (>60); GLUCOSE,RANDOM 226 mg/dL (70-110); POTASSIUM 4.7 mmol/L (3.5-5.1); SODIUM SERUM 135 mmol/L (136-145); UREA NITROGEN, BLOOD 17 mg/dL (7-18)
[2021-09-07] MEDS: APIXABAN 5 MG TABLET PO SCH ×2 (08:42→20:54)
[2021-09-07] MEDS: MULTIVITAMINS WITH MINERALS, THERAPEUTIC TABLET PO SCH (08:42)
[2021-09-07] MEDS: FAMOTIDINE 20 MG TABLET PO SCH (08:43)
[2021-09-07] MEDS: VANCOMYCIN HCL 1.25 GM in DEXTROSE 5%-WATER 250 ML IV SCH ×2 (08:43→19:43)
[2021-09-07] MEDS: DOCUSATE SODIUM 100 MG CAPSULE PO SCH ×2 (08:43→20:47)
[2021-09-07] MEDS: FUROSEMIDE 40 MG/4 ML VIAL IVP SCH ×2 (08:44→20:47)
[2021-09-07 12:14] LABS: GLUCOMETER DEV NAME(LOC) 5N.3; GLUCOSE,POINT OF CARE 238 MG/DL (70-110)
[2021-09-07 17:15] LABS: GLUCOMETER DEV NAME(LOC) 5S.1; GLUCOSE,POINT OF CARE 215 MG/DL (70-110)
[2021-09-07 17:15] LABS: GLUCOMETER DEV NAME(LOC) 5S.1; GLUCOSE,POINT OF CARE 308 MG/DL (70-110)
[2021-09-07] MEDS: METOPROLOL SUCCINATE 25 MG ER TABLET PO SCH (20:48)
[2021-09-07] MEDS: MORPHINE SULFATE 2 MG/ML SYRINGE IVP PRN (20:50)
[2021-09-08 00:20] VITALS: BP 132/90
[2021-09-08 04:16] VITALS: BP 133/80
[2021-09-08 06:05] LABS: BASOPHILS % (AUTO) 0.7 % (0.0-2.0); EOSINOPHILS % (AUTO) 1.6 % (1.0-6.0); HEMATOCRIT 43.1 % (41-53); HEMOGLOBIN 13.7 g/dL (13.5-17.5); LYMPHOCYTES # (AUTO) 1.3 K/uL (1.0-4.8); MEAN CORPUSCULAR HEMOGLOBIN 29.2 pg (26.0-34.0); MEAN CORPUSCULAR HGB CONC 31.8 G/dL (31.0-37.0); MEAN CORPUSCULAR VOLUME 92 fL (80-100); MONOCYTES # (AUTO) 1.1 K/uL (0.1-1.0); MONOCYTES % (AUTO) 12.5 % (2.0-9.0); NEUTROPHILS # (AUTO) 6.3 K/uL (1.8-7.7); NEUTROPHILS % (AUTO) 70.2 % (40.0-70.0); PLATELET COUNT (AUTO) 293 K/uL (150-450); RED BLOOD CELL COUNT(AUTO) 4.69 MIL/uL (4.50-5.90); RED CELL DISTRIBUTION WIDTH 15.2 % (11.5-14.5)
[2021-09-08] MEDS: MORPHINE SULFATE 2 MG/ML SYRINGE IVP PRN ×2 (06:10→10:56)
[2021-09-08 06:32] LABS: INR 1.1 (0.9-1.1); PROTHROMBIN TIME 11.4 SEC (9.4-11.6)
[2021-09-08 06:54] LABS: ALANINE AMINOTRANSFERASE 32 U/L (12-78); ALKALINE PHOSPHATASE 261 U/L (46-116); ANION GAP 2 mmol/L (8-16); ASPARTATE AMINOTRANSFERASE 23 U/L (15-37); BILIRUBIN,TOTAL 0.4 mg/dL (0.1-1.0); CALCIUM, TOTAL 8.5 mg/dL (8.8-10.5); CARBON DIOXIDE 33 mmol/L (22-29); CHLORIDE 99 mmol/L (98-107); CREATININE 1.26 mg/dL (0.60-1.30); GLOMERULAR FILTR. RATE CALC > 60 mL/min (>60); GLUCOSE,RANDOM 242 mg/dL (70-110); POTASSIUM 4.5 mmol/L (3.5-5.1); SODIUM SERUM 134 mmol/L (136-145); TOTAL PROTEIN, SERUM 6.9 g/dL (6.4-8.2); UREA NITROGEN, BLOOD 20 mg/dL (7-18)
[2021-09-08 07:08] LABS: GLUCOMETER DEV NAME(LOC) 5S.1; GLUCOSE,POINT OF CARE 233 MG/DL (70-110)
[2021-09-08 07:15] VITALS: BP 141/105
[2021-09-08] MEDS: VANCOMYCIN HCL 1.25 GM in DEXTROSE 5%-WATER 250 ML IV SCH ×2 (10:55→21:01)
[2021-09-08 11:04] VITALS: BP 161/96
[2021-09-08] MEDS: FAMOTIDINE 20 MG TABLET PO SCH (11:24)
[2021-09-08] MEDS: MULTIVITAMINS WITH MINERALS, THERAPEUTIC TABLET PO SCH (11:24)
[2021-09-08] MEDS: DOCUSATE SODIUM 100 MG CAPSULE PO SCH ×2 (11:24→21:01)
[2021-09-08] MEDS: METOPROLOL SUCCINATE 25 MG ER TABLET PO SCH ×2 (11:24→21:01)
[2021-09-08] MEDS: APIXABAN 5 MG TABLET PO SCH ×2 (11:24→21:02)
[2021-09-08] MEDS: FUROSEMIDE 40 MG/4 ML VIAL IVP SCH ×2 (11:25→21:01)
[2021-09-08] MEDS: INSULIN LISPRO 100 UNITS/ML SQ PRN ×3 (12:22→21:16)
[2021-09-08 15:52] VITALS: BP 132/76
[2021-09-08] MEDS: IPRATROPIUM BROMIDE 0.5 MG/2.5 ML NEB SOLUTION NEB SCH ×3 (16:37→23:00)
[2021-09-08] MEDS: ALBUTEROL SULFATE 2.5 MG/0.5 ML NEB SOLUTION NEB SCH ×3 (16:38→23:00)
[2021-09-08 17:41] LABS: GLUCOMETER DEV NAME(LOC) 5S.2B; GLUCOSE,POINT OF CARE 204 MG/DL (70-110)
[2021-09-08 20:15] LABS: GLUCOMETER DEV NAME(LOC) 5N.3; GLUCOSE,POINT OF CARE 154 MG/DL (70-110)
[2021-09-08 20:15] LABS: GLUCOMETER DEV NAME(LOC) 5N.3; GLUCOSE,POINT OF CARE 215 MG/DL (70-110)
[2021-09-08 20:30] VITALS: BP 131/88
[2021-09-08] MEDS: OxyCODONE HCL/ACETAMINOPHEN 5-325 MG TABLET PO PRN (21:05)
[2021-09-08] MEDS ORDERED: SODIUM CHLORIDE 0.9% 100 ML ONE (22:16)
[2021-09-09 00:14] VITALS: BP 127/73
[2021-09-09] MEDS: IPRATROPIUM BROMIDE 0.5 MG/2.5 ML NEB SOLUTION NEB SCH ×4 (03:00→15:09)
[2021-09-09] MEDS: ALBUTEROL SULFATE 2.5 MG/0.5 ML NEB SOLUTION NEB SCH ×4 (03:00→15:09)
[2021-09-09 04:17] VITALS: BP 134/79
[2021-09-09 04:17] LABS: GLUCOMETER DEV NAME(LOC) 5S.2B; GLUCOSE,POINT OF CARE 220 MG/DL (70-110)
[2021-09-09] MEDS: INSULIN LISPRO 100 UNITS/ML SQ PRN ×2 (06:14→12:23)
[2021-09-09 07:09] LABS: ANION GAP 4 mmol/L (8-16); CALCIUM, TOTAL 8.4 mg/dL (8.8-10.5); CARBON DIOXIDE 33 mmol/L (22-29); CHLORIDE 98 mmol/L (98-107); CREATININE 1.23 mg/dL (0.60-1.30); GLOMERULAR FILTR. RATE CALC > 60 mL/min (>60); GLUCOSE,RANDOM 204 mg/dL (70-110); POTASSIUM 4.3 mmol/L (3.5-5.1); SODIUM SERUM 135 mmol/L (136-145); UREA NITROGEN, BLOOD 20 mg/dL (7-18); VANCOMYCIN,RANDOM 21.4 mcg/mL (25.0-50.0)
[2021-09-09 07:10] VITALS: BP 118/89
[2021-09-09] MEDS: DOCUSATE SODIUM 100 MG CAPSULE PO SCH (10:13)
[2021-09-09] MEDS: FUROSEMIDE 40 MG/4 ML VIAL IVP SCH (10:13)
[2021-09-09] MEDS: VANCOMYCIN HCL 1.25 GM in DEXTROSE 5%-WATER 250 ML IV SCH (10:14)
[2021-09-09] MEDS: MULTIVITAMINS WITH MINERALS, THERAPEUTIC TABLET PO SCH (10:14)
[2021-09-09] MEDS: APIXABAN 5 MG TABLET PO SCH (10:14)
[2021-09-09] MEDS: FAMOTIDINE 20 MG TABLET PO SCH (10:14)
[2021-09-09] MEDS: METOPROLOL SUCCINATE 25 MG ER TABLET PO SCH (10:14)
[2021-09-09] MEDS: OxyCODONE HCL/ACETAMINOPHEN 5-325 MG TABLET PO PRN (11:00)
[2021-09-09 11:23] VITALS: BP 142/99
[2021-09-09] MEDS ORDERED: APIX5TAB PO (14:16)
[2021-09-09] MEDS ORDERED: FURO-151 PO (14:17)
[2021-09-09] MEDS ORDERED: METO25TA3 PO (14:18)
[2021-09-09] MEDS ORDERED: LEVO-72 PO (14:19)
[2021-09-09] MEDS ORDERED: ALBU8.5H8 IH (14:20)
[2021-09-09 15:39] VITALS: BP 132/73
[2021-09-09 20:31] LABS: GLUCOMETER DEV NAME(LOC) 5N.3; GLUCOSE,POINT OF CARE 174 MG/DL (70-110)
[2021-09-09 20:31] LABS: GLUCOMETER DEV NAME(LOC) 5N.3; GLUCOSE,POINT OF CARE 251 MG/DL (70-110)
[2021-09-10 02:05] LABS: GLUCOMETER DEV NAME(LOC) 5S.1; GLUCOSE,POINT OF CARE 272 MG/DL (70-110)
[2021-09-24] MEDS ORDERED: PRED20 PO (10:57)
[2021-09-24] MEDS ORDERED: INSLAN SQ (11:49)
== END 2021-09-09 15:45 | disposition home health service (06) | DRG 720 ==
LOC: EMS 18:55 → 5N 21:00 → 5S 09-06 14:17
PROVIDERS: ADMIT Internal Medicine; ATTEND Internal Medicine
DX: A41.9 Sepsis, unspecified organism (principal); I50.23 Acute on chronic systolic (congestive) heart failure; N17.9 Acute kidney failure, unspecified; E87.1 Hypo-osmolality and hyponatremia; I48.92 Unspecified atrial flutter; E11.319 Type 2 diabetes mellitus with unspecified diabetic retinopathy without macular edema; J44.1 Chronic obstructive pulmonary disease with (acute) exacerbation; E11.22 Type 2 diabetes mellitus with diabetic chronic kidney disease; E11.40 Type 2 diabetes mellitus with diabetic neuropathy, unspecified; E66.01 Morbid (severe) obesity due to excess calories; E78.5 Hyperlipidemia, unspecified; I25.10 Atherosclerotic heart disease of native coronary artery without angina pectoris; F17.210 Nicotine dependence, cigarettes, uncomplicated; E78.00 Pure hypercholesterolemia, unspecified; Z20.822 Contact with and (suspected) exposure to COVID-19; I13.0 Hypertensive heart and chronic kidney disease with heart failure and stage 1 through stage 4 chronic kidney disease, or unspecified chronic kidney disease; F15.10 Other stimulant abuse, uncomplicated; N18.30 Chronic kidney disease, stage 3 unspecified; L03.115 Cellulitis of right lower limb; Z91.14 Patient's other noncompliance with medication regimen; Z68.38 Body mass index [BMI] 38.0-38.9, adult; Z95.5 Presence of coronary angioplasty implant and graft; Z91.19 Patient's noncompliance with other medical treatment and regimen; Z79.01 Long term (current) use of anticoagulants; Z79.899 Other long term (current) drug therapy; Z68.37 Body mass index [BMI] 37.0-37.9, adult
CPT/HCPCS: 71045; 80048; 80053; 80202; 82550; 82728; 82962; 83605; 83615; 83735; 83880; 84100; 84145; 84484; 85025; 85379; 85610; 85651; 85730; 87040; 93005; 93306; 94640; 97162; 99285; J1644; J1940; J2270; J3370; J7030; J7050; J7060; 36415-L1; 36415-TC; J7613; U0003

== ENCOUNTER 2021-09-26 05:32 | Emergency (ER) | payer OTHER ==
[~2021-09-26] VITALS: Ht 175.3 cm; Wt 116.7 kg
[~2021-09-26 05:32] MED LIST changes: +ALBU8.5H8 IH; +APIX5TAB PO; -ASPI-1450 PO; -ATOR20TA65 PO; -BUME1TAB6 PO; -FLUT1AER IH; +FURO-151 PO; -ISOS1TAB2 PO; -LOSA25TA2 PO; +METO25TA3 PO; -PANT-31 PO; -POTA8TAB71 PO; +PRED20 PO
[2021-09-26 05:52] LABS: GLUCOMETER DEV NAME(LOC) ERT.5; GLUCOSE,POINT OF CARE 437 MG/DL (70-110)
[2021-09-26 06:23] LABS: BASOPHILS % (AUTO) 0.4 % (0.0-2.0); EOSINOPHILS % (AUTO) 0 % (1.0-6.0); HEMATOCRIT 42.2 % (41-53); HEMOGLOBIN 13.3 g/dL (13.5-17.5); LYMPHOCYTES # (AUTO) 0.7 K/uL (1.0-4.8); LYMPHOCYTES % (AUTO) 6.6 % (22.0-44.0); MEAN CORPUSCULAR HEMOGLOBIN 29.4 pg (26.0-34.0); MEAN CORPUSCULAR HGB CONC 31.4 G/dL (31.0-37.0); MEAN CORPUSCULAR VOLUME 94 fL (80-100); MONOCYTES # (AUTO) 1.1 K/uL (0.1-1.0); MONOCYTES % (AUTO) 9.8 % (2.0-9.0); NEUTROPHILS # (AUTO) 9.1 K/uL (1.8-7.7); NEUTROPHILS % (AUTO) 83.2 % (40.0-70.0); PLATELET COUNT (AUTO) 212 K/uL (150-450); RED BLOOD CELL COUNT(AUTO) 4.51 MIL/uL (4.50-5.90); RED CELL DISTRIBUTION WIDTH 16.6 % (11.5-14.5)
[2021-09-26] MEDS ORDERED: METOPROLOL SUCCINATE 25 MG ER TABLET PO ONE (06:30)
[2021-09-26 06:35] LABS: ALBUMIN 2.8 g/dL (3.4-5.0); BILIRUBIN,TOTAL 0.6 mg/dL (0.1-1.0); CALCIUM, TOTAL 8.6 mg/dL (8.8-10.5); CREATININE 1.56 mg/dL (0.60-1.30); MAGNESIUM 1.9 mg/dL (1.80-2.40); POTASSIUM 4.4 mmol/L (3.5-5.1); TOTAL PROTEIN, SERUM 7.7 g/dL (6.4-8.2)
[2021-09-26 07:07] LABS: COVID AG,FIA SOURCE NASOPHARYNGEAL
[2021-09-26 07:15] LABS: APPEARANCE,URINE CLEAR (CLEAR); BILIRUBIN,URINE NEGATIVE (NEGATIVE); GLUCOSE, URINE (UA) >=1000 mg/dL (NEGATIVE); KETONES,URINE NEGATIVE (NEGATIVE); LEUKOCYTE ESTERASE ,URINE NEGATIVE (NEGATIVE); NITRATE,URINE NEGATIVE (NEGATIVE); OCCULT BLOOD,URINE TRACE (NEGATIVE); PROTEIN,URINE SEE CONFIRM (NEGATIVE); UROBILINOGEN,URINE 0.2 mg/dL (<=1.0)
[2021-09-26 07:22] LABS: AMPHET/METH SCREEN,URINE NEGATIVE (NEGATIVE); BARBITURATE SCREEN, URINE NEGATIVE (NEGATIVE); BENZODIAZEPINES SCREEN,URINE NEGATIVE (NEGATIVE); CANNABINOID SCREEN,URINE NEGATIVE (NEGATIVE); COCAINE SCREEN,URINE NEGATIVE (NEGATIVE); METHADONE SCREEN, URINE NEGATIVE (NEGATIVE); OPIATE SCREEN,URINE NEGATIVE (NEGATIVE); PHENCYCLIDINE SCREEN,URINE NEGATIVE (NEGATIVE)
[2021-09-26 07:28] LABS: BACTERIA,URINE None Seen /HPF (None Seen); RBC,URINE None Seen /HPF (0-2); SQUAMOUS EPITHELIAL CELL,UR Few /LPF (None Seen); SULFOSALICYLIC ACID,URINE 1+ (Negative); WBC,URINE 0-2 /HPF (0-5)
[2021-09-26 07:38] LABS: INFLUENZA TYPE A NEGATIVE FOR TYPE A (NEGATIVE); INFLUENZA TYPE B NEGATIVE FOR TYPE B (NEGATIVE)
[2021-09-26] MEDS ORDERED: INSULIN LISPRO 100 UNITS/ML SQ ONE (07:45)
[2021-09-26] MEDS ORDERED: FUROSEMIDE 20 MG TABLET PO ONE (07:45)
[2021-09-26] MEDS ORDERED: APIXABAN 5 MG TABLET PO ONE (07:45)
[2021-09-26] MEDS ORDERED: ALBUTEROL SULFATE HFA 90 MCG/PUFF 8 GM INHALER IH ONE (07:45)
[2021-09-26 08:02] LABS: GLUCOSE,POINT OF CARE 422 MG/DL (70-110)
[2021-09-26 09:18] LABS: GLUCOSE,POINT OF CARE 355 MG/DL (70-110)
[2021-09-26 10:15] LABS: GLUCOSE,POINT OF CARE 258 MG/DL (70-110)
[2021-09-26 14:05] VITALS: BP 168/94
== END 2021-09-26 13:02 | disposition home or self-care (01) ==
LOC: EMS 05:35
DX: J44.9 Chronic obstructive pulmonary disease, unspecified (principal); I49.9 Cardiac arrhythmia, unspecified; I11.0 Hypertensive heart disease with heart failure; I50.9 Heart failure, unspecified; Z91.14 Patient's other noncompliance with medication regimen; Z20.822 Contact with and (suspected) exposure to COVID-19
CPT/HCPCS: 71045; 80053; 81001; 81002; 82550; 82948; 82962; 83690; 83735; 83880; 84484; 85025; 87804; 93005; 94640; 96372; 99285; J1815; J3535; 36415-L1; 36415-TC

== ENCOUNTER 2021-12-31 10:16 | Emergency (ER) | payer OTHER ==
[~2021-12-31] VITALS: Ht 175.3 cm; Wt 125.0 kg
[~2021-12-31 10:16] MED LIST changes: +CEPH500C3 PO; +CLIN-26 PO; -FURO-151 PO; +FURO40 PO; -INSLAN SQ; +LOSA50TA2 PO; +MAGN400T7 PO; +METO-391 PO; -METO25TA3 PO; -PRED20 PO; +SPIR-37 PO
[2021-12-31] MEDS ORDERED: IPRATROPIUM BROMIDE 0.5 MG/2.5 ML NEB SOLUTION NEB ONE (10:30)
[2021-12-31] MEDS ORDERED: DOXYCYCLINE HYCLATE 100 MG in DEXTROSE 5%-WATER 100 ML IV ONE (10:30)
[2021-12-31] MEDS ORDERED: MethylPREDNISolone SOD SUCC 125 MG/2 ML VIAL IVP ONE (10:30)
[2021-12-31] MEDS ORDERED: FUROSEMIDE 40 MG/4 ML VIAL IVP ONE (10:30)
[2021-12-31] MEDS ORDERED: ALBUTEROL SULFATE 2.5 MG/0.5 ML NEB SOLUTION NEB ONE (10:30)
[2021-12-31 11:12] LABS: BASOPHILS % (AUTO) 0.2 % (0.0-2.0); EOSINOPHILS % (AUTO) 0 % (1.0-6.0); HEMATOCRIT 39.4 % (41-53); HEMOGLOBIN 12.4 g/dL (13.5-17.5); LYMPHOCYTES # (AUTO) 1.1 K/uL (1.0-4.8); LYMPHOCYTES % (AUTO) 4.7 % (22.0-44.0); MEAN CORPUSCULAR HEMOGLOBIN 27.9 pg (26.0-34.0); MEAN CORPUSCULAR HGB CONC 31.4 G/dL (31.0-37.0); MEAN CORPUSCULAR VOLUME 89 fL (80-100); MONOCYTES # (AUTO) 2.1 K/uL (0.1-1.0); MONOCYTES % (AUTO) 9.5 % (2.0-9.0); NEUTROPHILS # (AUTO) 19.2 K/uL (1.8-7.7); PLATELET COUNT (AUTO) 182 K/uL (150-450); RED BLOOD CELL COUNT(AUTO) 4.45 MIL/uL (4.50-5.90); RED CELL DISTRIBUTION WIDTH 17.4 % (11.5-14.5)
[2021-12-31 11:13] LABS: NEUTROPHILS % (AUTO) 85.6 % (40.0-70.0)
[2021-12-31 11:15] LABS: COVID AG,FIA SOURCE NASOPHARYNGEAL
[2021-12-31] MEDS ORDERED: MORPHINE SULFATE 2 MG/ML SYRINGE IVP ONE (11:30)
[2021-12-31 11:58] LABS: ALBUMIN 2.5 g/dL (3.4-5.0); BILIRUBIN,TOTAL 2.6 mg/dL (0.1-1.0); CREATININE 1.52 mg/dL (0.60-1.30); MAGNESIUM 1.9 mg/dL (1.80-2.40); PHOSPHORUS 3.1 mg/dL (2.5-4.9); POTASSIUM 4.8 mmol/L (3.5-5.1); TOTAL PROTEIN, SERUM 7.5 g/dL (6.4-8.2)
[2021-12-31 14:10] LABS: APPEARANCE,URINE CLEAR (CLEAR); BILIRUBIN,URINE NEGATIVE (NEGATIVE); GLUCOSE, URINE (UA) NEGATIVE (NEGATIVE); KETONES,URINE NEGATIVE (NEGATIVE); LEUKOCYTE ESTERASE ,URINE NEGATIVE (NEGATIVE); NITRATE,URINE NEGATIVE (NEGATIVE); OCCULT BLOOD,URINE TRACE (NEGATIVE); PH,URINE 5.5 (5.0-8.0); PROTEIN,URINE 100-200,SEE CONFIRM mg/dL (NEGATIVE); SPECIFIC GRAVITIY, URINE 1.013 (1.003-1.030)
[2021-12-31 14:22] LABS: SULFOSALICYLIC ACID,URINE 2+ (Negative)
[2021-12-31 14:23] LABS: BACTERIA,URINE None Seen /HPF (None Seen); RBC,URINE 0-2 /HPF (0-2); WBC,URINE None Seen /HPF (0-5)
[2021-12-31 15:52] VITALS: BP 145/110
== END 2021-12-31 16:58 | disposition short-term general hospital (02) ==
LOC: EMS 10:18
DX: I11.0 Hypertensive heart disease with heart failure (principal); I50.9 Heart failure, unspecified; J44.9 Chronic obstructive pulmonary disease, unspecified; E11.9 Type 2 diabetes mellitus without complications; F15.90 Other stimulant use, unspecified, uncomplicated; Z79.899 Other long term (current) drug therapy; Z20.822 Contact with and (suspected) exposure to COVID-19
CPT/HCPCS: 36415; 71045; 80053; 81001; 82550; 83735; 83880; 84100; 84484; 85025; 87426; 93005; 94640; 96365; 96375; 99291; J1940; J2270; J2930; J3490; J7060; 81002; J7613

== ENCOUNTER 2022-02-22 00:09 | Inpatient (IN) | payer OTHER ==
[~2022-02-22] VITALS: Ht 175.3 cm; Wt 113.1 kg
[~2022-02-22 00:09] MED LIST changes: +CEPH-558 PO; -CEPH500C3 PO
[2022-02-22 01:36] LABS: GLUCOSE,POINT OF CARE 149 MG/DL (70-110)
[2022-02-22] MEDS ORDERED: PIPERACILLIN SODIUM/TAZOBACTAM 4.5 GM in DEXTROSE 5%-WATER 100 ML IV ONE (03:00)
[2022-02-22] MEDS ORDERED: MetroNIDAZOLE 750 MG/NACL 150 ML IV ONE (03:00)
[2022-02-22 04:10] LABS: BASOPHILS % (AUTO) 0.4 % (0.0-2.0); HEMOGLOBIN 12.3 g/dL (13.5-17.5); LYMPHOCYTES # (AUTO) 1.1 K/uL (1.0-4.8); LYMPHOCYTES % (AUTO) 11.5 % (22.0-44.0); MEAN CORPUSCULAR HEMOGLOBIN 27.9 pg (26.0-34.0); MEAN CORPUSCULAR HGB CONC 32.5 G/dL (31.0-37.0); MEAN CORPUSCULAR VOLUME 86 fL (80-100); MONOCYTES # (AUTO) 1.1 K/uL (0.1-1.0); MONOCYTES % (AUTO) 11.5 % (2.0-9.0); NEUTROPHILS % (AUTO) 75.6 % (40.0-70.0); PLATELET COUNT (AUTO) 260 K/uL (150-450); RED BLOOD CELL COUNT(AUTO) 4.42 MIL/uL (4.50-5.90); RED CELL DISTRIBUTION WIDTH 18.7 % (11.5-14.5)
[2022-02-22 04:32] LABS: HEMOGLOBIN A1C 6.6 % (3.8-5.6)
[2022-02-22 04:39] LABS: LACTIC ACID 1.1 mmol/L (0.4-2.0)
[2022-02-22 04:49] LABS: ALBUMIN 2.7 g/dL (3.4-5.0); BILIRUBIN,TOTAL 1.4 mg/dL (0.1-1.0); CALCIUM, TOTAL 7.9 mg/dL (8.8-10.5); CREATININE 1.62 mg/dL (0.60-1.30); POTASSIUM 4.4 mmol/L (3.5-5.1); TOTAL PROTEIN, SERUM 6.9 g/dL (6.4-8.2)
[2022-02-22] MEDS ORDERED: SODIUM CHLORIDE 0.9% 1,000 ML IV ONE (05:00)
[2022-02-22] MEDS ORDERED: GENTAMICIN 80 MG/NACL ISO-OSM 50 ML IV ONE (06:00)
[2022-02-22] MEDS ORDERED: FentaNYL CITRATE PF 100 MCG/2 ML VIAL IVP ONE (06:00)
[2022-02-22] MEDS ORDERED: ONDANSETRON HCL 4 MG/2 ML VIAL IVP ONE (06:00)
[2022-02-22 07:05] LABS: COVID AG,FIA SOURCE NASOPHARYNGEAL
[2022-02-22] MEDS ORDERED: OxyCODONE HCL/ACETAMINOPHEN 5-325 MG TABLET PO PRN ×2 (12:15)
[2022-02-22] MEDS ORDERED: ALBUTEROL SULFATE 2.5 MG/0.5 ML NEB SOLUTION NEB PRN (12:15)
[2022-02-22] MEDS ORDERED: ACETAMINOPHEN 325 MG TABLET PO PRN (12:15)
[2022-02-22] MEDS ORDERED: ONDANSETRON HCL 4 MG/2 ML VIAL IVP PRN (12:15)
[2022-02-22] MEDS: FUROSEMIDE 20 MG/2 ML VIAL IVP SCH ×2 (12:17→20:45)
[2022-02-22] MEDS: HEPARIN SODIUM,PORCINE 5,000 UNITS/ML VIAL SQ SCH (15:03)
[2022-02-22 17:51] VITALS: BP 143/94
[2022-02-22 19:35] VITALS: BP 140/89
[2022-02-22] MEDS: DOCUSATE SODIUM 100 MG CAPSULE PO SCH ×2 (20:45→21:00)
[2022-02-22] MEDS ORDERED: LIDOCAINE 2% 5 ML JELLY TP ONE (23:15)
[2022-02-22 23:50] VITALS: BP 136/74
[2022-02-23] MEDS: HEPARIN SODIUM,PORCINE 5,000 UNITS/ML VIAL SQ SCH ×3 (00:49→16:51)
[2022-02-23 04:15] VITALS: BP 144/88
[2022-02-23 07:49] VITALS: BP 141/76
[2022-02-23 08:55] LABS: CALCIUM, TOTAL 8.4 mg/dL (8.8-10.5); CREATININE 1.31 mg/dL (0.60-1.30); POTASSIUM 5.2 mmol/L (3.5-5.1)
[2022-02-23] MEDS ORDERED: FAMOTIDINE 20 MG TABLET PO SCH (09:00)
[2022-02-23] MEDS: ASPIRIN 81 MG CHEWABLE TABLET PO SCH (09:00)
[2022-02-23] MEDS: DOCUSATE SODIUM 100 MG CAPSULE PO SCH ×2 (09:00→21:00)
[2022-02-23] MEDS: FUROSEMIDE 20 MG/2 ML VIAL IVP SCH ×2 (09:01→21:43)
[2022-02-23 11:50] VITALS: BP 124/83
[2022-02-23 12:16] LABS: SOURCE, BLOOD GAS ARTERIAL
[2022-02-23 12:52] LABS: ABG CARBOXYHEMOGLOBIN 1.9 % (0.0-1.5); ABG METHEMOGLOBIN 0.3 % (0.0-1.5)
[2022-02-23 13:24] LABS: ABG BASE EXCESS -5.3 mmol/L (-2.0-3.0); ABG HCO3 18.5 mmol/L (22.0-26.0); ABG OXYGEN CONTENT 12.8 mL/dL (15.0-23.0); ABG PCO2 63 mmHg (35-45); ABG TOTAL HEMOGLOBIN 14.7 G/dL (12.0-18.0)
[2022-02-23 13:26] LABS: ABG OXYGEN SATURATION 63.4 % (95.0-98.0); ABG PH 7.181 (7.35-7.450); PO2, ARTERIAL BG 34.1 mmHg (84.0-92.0); SITE, BLOOD GAS RT BRACHIAL
[2022-02-23 13:54] LABS: INR 1.4 (0.9-1.1); PROTHROMBIN TIME 14.3 SEC (9.4-11.6)
[2022-02-23 15:44] VITALS: BP 147/91
[2022-02-23 17:54] LABS: APPEARANCE,URINE CLEAR (CLEAR); BILIRUBIN,URINE NEGATIVE (NEGATIVE); GLUCOSE, URINE (UA) NEGATIVE (NEGATIVE); KETONES,URINE NEGATIVE (NEGATIVE); LEUKOCYTE ESTERASE ,URINE MODERATE (NEGATIVE); NITRATE,URINE NEGATIVE (NEGATIVE); OCCULT BLOOD,URINE MODERATE (NEGATIVE); PROTEIN,URINE 100-200,SEE CONFIRM mg/dL (NEGATIVE); SPECIFIC GRAVITIY, URINE 1.012 (1.003-1.030); UROBILINOGEN,URINE <=1.0 mg/dL (<=1.0)
[2022-02-23 18:01] LABS: AMPHET/METH SCREEN,URINE POSITIVE (NEGATIVE); BARBITURATE SCREEN, URINE NEGATIVE (NEGATIVE); BENZODIAZEPINES SCREEN,URINE NEGATIVE (NEGATIVE); CANNABINOID SCREEN,URINE NEGATIVE (NEGATIVE); COCAINE SCREEN,URINE NEGATIVE (NEGATIVE); METHADONE SCREEN, URINE NEGATIVE (NEGATIVE); OPIATE SCREEN,URINE NEGATIVE (NEGATIVE)
[2022-02-23 18:03] LABS: SULFOSALICYLIC ACID,URINE 3+ (Negative)
[2022-02-23 18:04] LABS: BACTERIA,URINE Few /HPF (None Seen); SQUAMOUS EPITHELIAL CELL,UR Few /LPF (None Seen)
[2022-02-23 18:08] LABS: PHENCYCLIDINE SCREEN,URINE NEGATIVE (NEGATIVE)
[2022-02-23] MEDS ORDERED: SODIUM CHLORIDE 0.9% 250 ML IV ONE (18:41)
[2022-02-23] MEDS: MethylPREDNISolone SOD SUCC 125 MG/2 ML VIAL IVP SCH (18:43)
[2022-02-23] MEDS: CefTRIAXone SODIUM 2 GM in DEXTROSE 5%-WATER 50 ML IV SCH (18:45)
[2022-02-23] MEDS: DEXMEDETOMIDINE HCL 400 MCG in SODIUM CHLORIDE 0.9% 96 ML IV PRN (19:11)
[2022-02-23 20:00] VITALS: BP 130/77
[2022-02-23] MEDS: DOXYCYCLINE HYCLATE 100 MG in DEXTROSE 5%-WATER 100 ML IV SCH (20:08)
[2022-02-24] VITALS: BP 111/65
[2022-02-24] MEDS: DEXMEDETOMIDINE HCL 400 MCG in SODIUM CHLORIDE 0.9% 96 ML IV PRN ×2 (00:08→10:50)
[2022-02-24] MEDS: MethylPREDNISolone SOD SUCC 125 MG/2 ML VIAL IVP SCH ×4 (00:09→17:22)
[2022-02-24] MEDS: HEPARIN SODIUM,PORCINE 5,000 UNITS/ML VIAL SQ SCH ×3 (00:09→16:00)
[2022-02-24 04:00] VITALS: BP 88/56
[2022-02-24] MEDS: DOXYCYCLINE HYCLATE 100 MG in DEXTROSE 5%-WATER 100 ML IV SCH ×2 (05:29→17:21)
[2022-02-24] MEDS ORDERED: SODIUM CHLORIDE 0.9% 250 ML IV ONE ×2 (05:36→13:25)
[2022-02-24] MEDS ORDERED: SODIUM CHLORIDE 0.9% 500 ML IV ONE ×2 (07:56→11:38)
[2022-02-24 08:00] VITALS: BP 89/53
[2022-02-24] MEDS ORDERED: PROPOFOL 1000 MG/ISO-OSM 100 ML ONE (08:09)
[2022-02-24 08:10] LABS: EOSINOPHILS % (AUTO) 0 % (1.0-6.0); HEMATOCRIT 39.8 % (41-53); HEMOGLOBIN 12.8 g/dL (13.5-17.5); LYMPHOCYTES # (AUTO) 0.5 K/uL (1.0-4.8); LYMPHOCYTES % (AUTO) 7.1 % (22.0-44.0); MEAN CORPUSCULAR HEMOGLOBIN 28.4 pg (26.0-34.0); MEAN CORPUSCULAR HGB CONC 32.1 G/dL (31.0-37.0); MEAN CORPUSCULAR VOLUME 89 fL (80-100); MONOCYTES # (AUTO) 0.1 K/uL (0.1-1.0); MONOCYTES % (AUTO) 0.9 % (2.0-9.0); NEUTROPHILS # (AUTO) 6.3 K/uL (1.8-7.7); PLATELET COUNT (AUTO) 215 K/uL (150-450)
[2022-02-24 08:21] LABS: CALCIUM, TOTAL 8.2 mg/dL (8.8-10.5); CREATININE 1.92 mg/dL (0.60-1.30); POTASSIUM 5.8 mmol/L (3.5-5.1)
[2022-02-24] MEDS ORDERED: NOREPINEPHRINE 4 MG/D5%-WATER 250 ML IV ONE (08:36)
[2022-02-24] MEDS ORDERED: NOREPINEPHRINE 4 MG/D5%-WATER 250 ML IV PRN (09:15)
[2022-02-24] MEDS ORDERED: IPRATROPIUM BROMIDE 0.5 MG/2.5 ML NEB SOLUTION NEB PRN (09:45)
[2022-02-24] MEDS ORDERED: ALBUTEROL SULFATE 2.5 MG/0.5 ML NEB SOLUTION NEB PRN (09:45)
[2022-02-24] MEDS ORDERED: INSULIN REGULAR, HUMAN 100 UNITS/ML IVP ONE (10:15)
[2022-02-24] MEDS ORDERED: DEXTROSE 50%-WATER 25 GM/50 ML SYRINGE IVP PRN (10:15)
[2022-02-24] MEDS ORDERED: DEXTROSE 50%-WATER 25 GM/50 ML SYRINGE IVP ONE (10:15)
[2022-02-24] MEDS: PROPOFOL 1000 MG/ISO-OSM 100 ML IV PRN ×4 (10:41→21:47)
[2022-02-24] MEDS ORDERED: NOREPINEPHRINE BITARTRATE 16 MG in DEXTROSE 5%-WATER 234 ML IV PRN (10:45)
[2022-02-24] MEDS: PANTOPRAZOLE SODIUM 40 MG/VIAL IVP SCH (10:48)
[2022-02-24] MEDS: FUROSEMIDE 20 MG/2 ML VIAL IVP SCH (10:48)
[2022-02-24] MEDS: DOCUSATE SODIUM 100 MG CAPSULE PO SCH ×2 (10:49→20:13)
[2022-02-24] MEDS: ASPIRIN 81 MG CHEWABLE TABLET PO SCH (10:49)
[2022-02-24 11:33] LABS: ABG BASE EXCESS -6.9 mmol/L (-2.0-3.0); ABG CARBOXYHEMOGLOBIN 0.8 % (0.0-1.5); ABG HCO3 18.6 mmol/L (22.0-26.0); ABG METHEMOGLOBIN 0.3 % (0.0-1.5); ABG OXYGEN CONTENT 18.7 mL/dL (15.0-23.0); ABG OXYGEN SATURATION 98.2 % (95.0-98.0); ABG OXYHEMOGLOBIN 97.1 % (94.0-100.0); ABG PCO2 54 mmHg (35-45); ABG TOTAL HEMOGLOBIN 13.6 G/dL (12.0-18.0); PO2, ARTERIAL BG 109.9 mmHg (84.0-92.0); SOURCE, BLOOD GAS ARTERIAL; TEMPERATURE, FAHRENHEIT, BG 98.6 FAHREN (96.0-98.6)
[2022-02-24 11:35] LABS: ABG PH 7.209 (7.35-7.450); O2 DEVICE,BLOOD GAS VENTILATOR (ROOM AIR); SITE, BLOOD GAS ARTERIAL LINE; VT, ABG 500 ml
[2022-02-24 11:36] LABS: PEEP,BG 5 cm H2O; SPONTANEOUS VT, BG 478 ml
[2022-02-24 12:00] VITALS: BP 115/54
[2022-02-24] MEDS: ALBUMIN HUMAN 25%-25GM/100ML 100 ML IV SCH ×2 (12:15→20:12)
[2022-02-24] MEDS: BUMETANIDE 10 MG in DEXTROSE 5%-WATER 60 ML IV SCH (12:16)
[2022-02-24] MEDS: SODIUM ZIRCONIUM CYCLOSILICATE 5 GM POWDER PACKET NG SCH (12:50)
[2022-02-24] MEDS ORDERED: SODIUM BICARBONATE [ADULT] 8.4% 50 MEQ/50 ML SYRINGE IVP ONE (13:00)
[2022-02-24 13:35] LABS: ABG BASE EXCESS -3.5 mmol/L (-2.0-3.0); ABG CARBOXYHEMOGLOBIN 0.8 % (0.0-1.5); ABG HCO3 21.2 mmol/L (22.0-26.0); ABG METHEMOGLOBIN 0.3 % (0.0-1.5); ABG OXYGEN CONTENT 17.9 mL/dL (15.0-23.0); ABG OXYGEN SATURATION 97.1 % (95.0-98.0); ABG PCO2 52 mmHg (35-45); ABG PH 7.274 (7.35-7.450); ABG TOTAL HEMOGLOBIN 13.2 G/dL (12.0-18.0); PO2, ARTERIAL BG 89.4 mmHg (84.0-92.0); SOURCE, BLOOD GAS ARTERIAL; TEMPERATURE, FAHRENHEIT, BG 98.4 FAHREN (96.0-98.6)
[2022-02-24 13:37] LABS: O2 DEVICE,BLOOD GAS VENTILATOR (ROOM AIR); SITE, BLOOD GAS ARTERIAL LINE; VT, ABG 500 ml
[2022-02-24 13:38] LABS: PEEP,BG 5 cm H2O; SPONTANEOUS VT, BG 479 ml
[2022-02-24 14:33] LABS: CREATININE,URINE RANDOM 159.8 mg/dL (30.0-125.0); SODIUM,URINE RANDOM < 5 mmol/l (20-110)
[2022-02-24 16:00] VITALS: BP 117/54
[2022-02-24 16:15] LABS: CALCIUM, TOTAL 8.5 mg/dL (8.8-10.5); CREATININE 2.14 mg/dL (0.60-1.30); MAGNESIUM 1.8 mg/dL (1.80-2.40); PHOSPHORUS 3.5 mg/dL (2.5-4.9); POTASSIUM 5.5 mmol/L (3.5-5.1)
[2022-02-24] MEDS: CefTRIAXone SODIUM 2 GM in DEXTROSE 5%-WATER 50 ML IV SCH (16:22)
[2022-02-24 16:49] LABS: SPECIMENTYPE,BODY FLUID PERITONEAL
[2022-02-24] MEDS: INSULIN LISPRO 100 UNITS/ML SQ PRN ×2 (18:05→21:17)
[2022-02-24] MEDS: LACTULOSE 20 GM/30 ML SOLUTION UDCUP PO PRN (18:29)
[2022-02-24 18:50] LABS: APPEARANCE,SPUN,BODY FLUID CLEAR (CLEAR); APPEARANCE,UNSPUN,BODY FLUID HAZY (CLEAR); COLOR,BODY FLUID YELLOW (LT YELLOW)
[2022-02-24 18:51] LABS: BASOPHILS,BODY FLUID 0 %; EOSINOPHILS,BF (ANAL) 0 %; LYMPHOCYTES,BODY FLUID 20 %; MONOCYTES,BODY FLUID 4 %; NEUTROPHILS,BODY FLUID 76 %; TOTAL VOLUME,BODY FLUID 3700 mL; WBC, BODY FLUID 98 /cu. mm.
[2022-02-24 20:00] VITALS: BP 120/52
[2022-02-24 20:16] LABS: GLUCOSE,POINT OF CARE 165 MG/DL (70-110)
[2022-02-24 21:26] LABS: GLUCOSE,POINT OF CARE 197 MG/DL (70-110)
[2022-02-25] VITALS: BP 117/50
[2022-02-25] MEDS: HEPARIN SODIUM,PORCINE 5,000 UNITS/ML VIAL SQ SCH ×3 (00:36→16:25)
[2022-02-25] MEDS: MethylPREDNISolone SOD SUCC 125 MG/2 ML VIAL IVP SCH ×4 (00:37→18:35)
[2022-02-25] MEDS: PROPOFOL 1000 MG/ISO-OSM 100 ML IV PRN ×7 (00:55→22:22)
[2022-02-25 01:07] LABS: CALCIUM, TOTAL 8.1 mg/dL (8.8-10.5); CREATININE 2.2 mg/dL (0.60-1.30); MAGNESIUM 1.7 mg/dL (1.80-2.40); POTASSIUM 5.2 mmol/L (3.5-5.1)
[2022-02-25 01:32] LABS: PHOSPHORUS 2.8 mg/dL (2.5-4.9)
[2022-02-25] MEDS ORDERED: MIDAZOLAM HCL 2 MG/2 ML VIAL IVP ONE (01:46)
[2022-02-25] MEDS ORDERED: PHENYLEPHRINE HCL 10 MG/ML VIAL IVP ONE (01:46)
[2022-02-25] MEDS ORDERED: FentaNYL CITRATE PF 100 MCG/2 ML VIAL IVP ONE (01:46)
[2022-02-25] MEDS ORDERED: ETOMIDATE 2 MG/ML 10 ML VIAL IVP ONE (01:46)
[2022-02-25] MEDS ORDERED: ROCURONIUM BROMIDE 10 MG/ML 5 ML VIAL IVP ONE (01:46)
[2022-02-25] MEDS ORDERED: 0.9% SODIUM CHLORIDE 10 ML VIAL IVP ONE (01:46)
[2022-02-25] MEDS ORDERED: LIDOCAINE/PF 2% 5 ML VIAL IM ONE (01:46)
[2022-02-25] MEDS: INSULIN LISPRO 100 UNITS/ML SQ PRN ×4 (03:09→22:26)
[2022-02-25] MEDS: ALBUMIN HUMAN 25%-25GM/100ML 100 ML IV SCH ×3 (03:11→20:38)
[2022-02-25] MEDS ORDERED: SODIUM CHLORIDE 0.9% 250 ML IV ONE (03:15)
[2022-02-25 04:00] VITALS: BP 123/52
[2022-02-25 04:26] LABS: GLUCOSE,POINT OF CARE 233 MG/DL (70-110)
[2022-02-25 04:26] LABS: GLUCOSE,POINT OF CARE 188 MG/DL (70-110)
[2022-02-25] MEDS: DOXYCYCLINE HYCLATE 100 MG in DEXTROSE 5%-WATER 100 ML IV SCH ×2 (05:04→17:39)
[2022-02-25] MEDS: BUMETANIDE 10 MG in DEXTROSE 5%-WATER 60 ML IV SCH ×2 (05:04→18:25)
[2022-02-25 08:00] VITALS: BP 138/59
[2022-02-25] MEDS: DOCUSATE SODIUM 100 MG CAPSULE PO SCH ×2 (08:33→20:39)
[2022-02-25] MEDS: ASPIRIN 81 MG CHEWABLE TABLET PO SCH (08:33)
[2022-02-25] MEDS: PANTOPRAZOLE SODIUM 40 MG/VIAL IVP SCH (08:33)
[2022-02-25] MEDS: SODIUM ZIRCONIUM CYCLOSILICATE 5 GM POWDER PACKET NG SCH (08:33)
[2022-02-25 08:38] LABS: CALCIUM, TOTAL 8.7 mg/dL (8.8-10.5); CREATININE 2.31 mg/dL (0.60-1.30); MAGNESIUM 1.9 mg/dL (1.80-2.40); PHOSPHORUS 2.8 mg/dL (2.5-4.9)
[2022-02-25 12:00] VITALS: BP 121/56
[2022-02-25 16:00] VITALS: BP 155/62
[2022-02-25 16:06] LABS: ALBUMIN URINE (ELP) 50.1 %
[2022-02-25] MEDS: CefTRIAXone SODIUM 2 GM in DEXTROSE 5%-WATER 50 ML IV SCH (16:25)
[2022-02-25 16:30] LABS: CALCIUM, TOTAL 8.5 mg/dL (8.8-10.5); CREATININE 2.42 mg/dL (0.60-1.30); POTASSIUM 4.8 mmol/L (3.5-5.1)
[2022-02-25 19:36] LABS: GLUCOMETER DEV NAME(LOC) AHU.; GLUCOSE,POINT OF CARE 217 MG/DL (70-110)
[2022-02-25 20:00] VITALS: BP 178/72
[2022-02-26] VITALS (11 sets, daily range): BP systolic 129–186; BP diastolic 52–79
[2022-02-26] MEDS: HEPARIN SODIUM,PORCINE 5,000 UNITS/ML VIAL SQ SCH ×3 (00:31→15:23)
[2022-02-26] MEDS: MethylPREDNISolone SOD SUCC 125 MG/2 ML VIAL IVP SCH ×4 (00:32→17:50)
[2022-02-26 00:47] LABS: CALCIUM, TOTAL 8.6 mg/dL (8.8-10.5); CREATININE 2.45 mg/dL (0.60-1.30); MAGNESIUM 1.9 mg/dL (1.80-2.40); PHOSPHORUS 3.2 mg/dL (2.5-4.9); POTASSIUM 4.6 mmol/L (3.5-5.1)
[2022-02-26] MEDS: PROPOFOL 1000 MG/ISO-OSM 100 ML IV PRN ×5 (02:28→15:38)
[2022-02-26] MEDS: ALBUMIN HUMAN 25%-25GM/100ML 100 ML IV SCH (03:44)
[2022-02-26] MEDS ORDERED: SODIUM CHLORIDE 0.9% 500 ML IV ONE (03:49)
[2022-02-26] MEDS ORDERED: SODIUM CHLORIDE 0.9% 250 ML IV ONE (03:49)
[2022-02-26] MEDS: BUMETANIDE 10 MG in DEXTROSE 5%-WATER 60 ML IV SCH (04:15)
[2022-02-26] MEDS: DOXYCYCLINE HYCLATE 100 MG in DEXTROSE 5%-WATER 100 ML IV SCH ×2 (05:30→17:50)
[2022-02-26] MEDS: INSULIN LISPRO 100 UNITS/ML SQ PRN ×3 (05:55→17:51)
[2022-02-26 06:07] LABS: GLUCOSE,POINT OF CARE 241 MG/DL (70-110)
[2022-02-26] MEDS: DOCUSATE SODIUM 100 MG CAPSULE PO SCH ×2 (07:40→21:20)
[2022-02-26] MEDS: ASPIRIN 81 MG CHEWABLE TABLET PO SCH (07:40)
[2022-02-26] MEDS: PANTOPRAZOLE SODIUM 40 MG/VIAL IVP SCH (07:40)
[2022-02-26 08:25] LABS: BASOPHILS % (AUTO) 0.3 % (0.0-2.0); EOSINOPHILS % (AUTO) 0 % (1.0-6.0); HEMATOCRIT 32.4 % (41-53); HEMOGLOBIN 10.7 g/dL (13.5-17.5); LYMPHOCYTES # (AUTO) 0.4 K/uL (1.0-4.8); LYMPHOCYTES % (AUTO) 5.1 % (22.0-44.0); MEAN CORPUSCULAR HEMOGLOBIN 28.4 pg (26.0-34.0); MEAN CORPUSCULAR VOLUME 86 fL (80-100); MONOCYTES # (AUTO) 0.2 K/uL (0.1-1.0); MONOCYTES % (AUTO) 1.9 % (2.0-9.0); NEUTROPHILS % (AUTO) 92.7 % (40.0-70.0); PLATELET COUNT (AUTO) 172 K/uL (150-450); RED BLOOD CELL COUNT(AUTO) 3.76 MIL/uL (4.50-5.90); RED CELL DISTRIBUTION WIDTH 19.3 % (11.5-14.5)
[2022-02-26 08:36] LABS: CALCIUM, TOTAL 8.4 mg/dL (8.8-10.5); CREATININE 2.31 mg/dL (0.60-1.30); MAGNESIUM 1.9 mg/dL (1.80-2.40); PHOSPHORUS 3.6 mg/dL (2.5-4.9); POTASSIUM 4.7 mmol/L (3.5-5.1)
[2022-02-26 08:36] LABS: GLUCOSE,POINT OF CARE 255 MG/DL (70-110)
[2022-02-26] MEDS: SODIUM ZIRCONIUM CYCLOSILICATE 5 GM POWDER PACKET NG SCH (09:00)
[2022-02-26] MEDS: CARVEDILOL 3.125 MG TABLET GT SCH ×2 (10:26→21:20)
[2022-02-26] MEDS: DEXMEDETOMIDINE HCL 400 MCG in SODIUM CHLORIDE 0.9% 96 ML IV PRN ×3 (11:22→23:18)
[2022-02-26] MEDS: LACTULOSE 20 GM/30 ML SOLUTION UDCUP PO PRN (14:06)
[2022-02-26] MEDS: CefTRIAXone SODIUM 2 GM in DEXTROSE 5%-WATER 50 ML IV SCH (15:22)
[2022-02-26] MEDS: HydrALAZINE HCL 20 MG/ML VIAL IVP PRN (15:38)
[2022-02-26] MEDS ORDERED: HEPARIN SODIUM,PORCINE 1,000 UNITS/ML VIAL IVCATH ONE ×2 (16:30)
[2022-02-26] MEDS ORDERED: HEPARIN SODIUM,PORCINE 1,000 UNITS/ML VIAL ONE (17:21)
[2022-02-26 17:46] LABS: GLUCOSE,POINT OF CARE 261 MG/DL (70-110)
[2022-02-26 18:36] LABS: GLUCOSE,POINT OF CARE 316 MG/DL (70-110)
[2022-02-26] MEDS ORDERED: INSULIN GLARGINE,HUM.REC.ANLOG 100 UNITS/ML SQ SCH (21:00)
[2022-02-26] MEDS: ETHYL ALCOHOL 62% ANTISEPTIC NASAL SANITIZER 0.6 ML AMPUL NASAL SCH (21:35)
[2022-02-27] VITALS (13 sets, daily range): BP systolic 123–157; BP diastolic 60–92
[2022-02-27] MEDS: MethylPREDNISolone SOD SUCC 125 MG/2 ML VIAL IVP SCH ×5 (00:40→23:45)
[2022-02-27] MEDS: HEPARIN SODIUM,PORCINE 5,000 UNITS/ML VIAL SQ SCH ×4 (00:40→23:45)
[2022-02-27] MEDS: INSULIN LISPRO 100 UNITS/ML SQ PRN ×5 (00:42→23:50)
[2022-02-27] MEDS ORDERED: SODIUM CHLORIDE 0.9% 250 ML IV ONE (02:51)
[2022-02-27 04:21] LABS: GLUCOSE,POINT OF CARE 340 MG/DL (70-110)
[2022-02-27] MEDS: DEXMEDETOMIDINE HCL 400 MCG in SODIUM CHLORIDE 0.9% 96 ML IV PRN ×4 (04:35→19:38)
[2022-02-27] MEDS: DOXYCYCLINE HYCLATE 100 MG in DEXTROSE 5%-WATER 100 ML IV SCH ×2 (04:56→17:04)
[2022-02-27 05:25] LABS: BASOPHILS % (AUTO) 0.2 % (0.0-2.0); EOSINOPHILS % (AUTO) 0 % (1.0-6.0); HEMATOCRIT 39.7 % (41-53); HEMOGLOBIN 13.1 g/dL (13.5-17.5); LYMPHOCYTES # (AUTO) 0.4 K/uL (1.0-4.8); LYMPHOCYTES % (AUTO) 3.8 % (22.0-44.0); MEAN CORPUSCULAR HEMOGLOBIN 28.4 pg (26.0-34.0); MEAN CORPUSCULAR VOLUME 86 fL (80-100); MONOCYTES # (AUTO) 0.3 K/uL (0.1-1.0); MONOCYTES % (AUTO) 3.3 % (2.0-9.0); PLATELET COUNT (AUTO) 153 K/uL (150-450); RED BLOOD CELL COUNT(AUTO) 4.61 MIL/uL (4.50-5.90); RED CELL DISTRIBUTION WIDTH 19.7 % (11.5-14.5)
[2022-02-27 05:33] LABS: NEUTROPHILS % (AUTO) 92.7 % (40.0-70.0)
[2022-02-27 05:42] LABS: CALCIUM, TOTAL 8.4 mg/dL (8.8-10.5); CREATININE 2.13 mg/dL (0.60-1.30); MAGNESIUM 1.8 mg/dL (1.80-2.40); PHOSPHORUS 4.5 mg/dL (2.5-4.9); POTASSIUM 4.5 mmol/L (3.5-5.1)
[2022-02-27] MEDS: ASPIRIN 81 MG CHEWABLE TABLET PO SCH (07:50)
[2022-02-27] MEDS: ETHYL ALCOHOL 62% ANTISEPTIC NASAL SANITIZER 0.6 ML AMPUL NASAL SCH ×2 (07:50→20:39)
[2022-02-27] MEDS: PANTOPRAZOLE SODIUM 40 MG/VIAL IVP SCH (07:50)
[2022-02-27] MEDS: DOCUSATE SODIUM 100 MG CAPSULE PO SCH ×2 (07:50→20:39)
[2022-02-27 08:00] LABS: GLUCOSE,POINT OF CARE 358 MG/DL (70-110)
[2022-02-27] MEDS: CARVEDILOL 3.125 MG TABLET GT SCH ×2 (09:00→20:40)
[2022-02-27 12:16] LABS: GLUCOSE,POINT OF CARE 323 MG/DL (70-110)
[2022-02-27] MEDS: CefTRIAXone SODIUM 2 GM in DEXTROSE 5%-WATER 50 ML IV SCH (15:39)
[2022-02-27] MEDS ORDERED: HEPARIN SODIUM,PORCINE 1,000 UNITS/ML VIAL IVP ONE (16:59)
[2022-02-27 18:11] LABS: GLUCOSE,POINT OF CARE 293 MG/DL (70-110)
[2022-02-27] MEDS: INSULIN GLARGINE,HUM.REC.ANLOG 100 UNITS/ML SQ SCH (20:43)
[2022-02-28] VITALS: BP 154/75
[2022-02-28 00:02] LABS: GLUCOSE,POINT OF CARE 323 MG/DL (70-110)
[2022-02-28] MEDS ORDERED: SODIUM CHLORIDE 0.9% 500 ML IV ONE (00:12)
[2022-02-28] MEDS ORDERED: SODIUM CHLORIDE 0.9% 250 ML IV ONE (00:12)
[2022-02-28] MEDS: DEXMEDETOMIDINE HCL 400 MCG in SODIUM CHLORIDE 0.9% 96 ML IV PRN ×5 (00:14→19:22)
[2022-02-28 04:00] VITALS: BP 136/64
[2022-02-28] MEDS: DOXYCYCLINE HYCLATE 100 MG in DEXTROSE 5%-WATER 100 ML IV SCH ×2 (04:25→17:07)
[2022-02-28 05:20] LABS: BASOPHILS % (AUTO) 0.1 % (0.0-2.0); EOSINOPHILS % (AUTO) 0 % (1.0-6.0); HEMATOCRIT 40.9 % (41-53); HEMOGLOBIN 13.4 g/dL (13.5-17.5); LYMPHOCYTES # (AUTO) 0.4 K/uL (1.0-4.8); LYMPHOCYTES % (AUTO) 3.2 % (22.0-44.0); MEAN CORPUSCULAR HEMOGLOBIN 28.2 pg (26.0-34.0); MEAN CORPUSCULAR HGB CONC 32.7 G/dL (31.0-37.0); MEAN CORPUSCULAR VOLUME 86 fL (80-100); MONOCYTES # (AUTO) 0.4 K/uL (0.1-1.0); MONOCYTES % (AUTO) 3.5 % (2.0-9.0); NEUTROPHILS # (AUTO) 11.7 K/uL (1.8-7.7); PLATELET COUNT (AUTO) 128 K/uL (150-450); RED BLOOD CELL COUNT(AUTO) 4.75 MIL/uL (4.50-5.90); RED CELL DISTRIBUTION WIDTH 19.4 % (11.5-14.5)
[2022-02-28 05:26] LABS: NEUTROPHILS % (AUTO) 93.2 % (40.0-70.0)
[2022-02-28 05:33] LABS: CALCIUM, TOTAL 8.4 mg/dL (8.8-10.5); CREATININE 1.83 mg/dL (0.60-1.30); PHOSPHORUS 3.6 mg/dL (2.5-4.9); POTASSIUM 4.6 mmol/L (3.5-5.1)
[2022-02-28] MEDS: MethylPREDNISolone SOD SUCC 125 MG/2 ML VIAL IVP SCH ×3 (05:46→17:07)
[2022-02-28] MEDS: INSULIN LISPRO 100 UNITS/ML SQ PRN ×3 (05:48→17:44)
[2022-02-28 08:00] VITALS: BP 165/56
[2022-02-28] MEDS: PANTOPRAZOLE SODIUM 40 MG/VIAL IVP SCH (08:00)
[2022-02-28] MEDS: ETHYL ALCOHOL 62% ANTISEPTIC NASAL SANITIZER 0.6 ML AMPUL NASAL SCH ×2 (08:00→21:16)
[2022-02-28] MEDS: HEPARIN SODIUM,PORCINE 5,000 UNITS/ML VIAL SQ SCH ×2 (08:01→15:05)
[2022-02-28] MEDS: CARVEDILOL 3.125 MG TABLET GT SCH ×2 (08:01→21:16)
[2022-02-28] MEDS: DOCUSATE SODIUM 100 MG CAPSULE PO SCH ×2 (08:01→21:16)
[2022-02-28] MEDS: ASPIRIN 81 MG CHEWABLE TABLET PO SCH (08:01)
[2022-02-28 10:12] LABS: ABG BASE EXCESS -1.8 mmol/L (-2.0-3.0); ABG CARBOXYHEMOGLOBIN 0.4 % (0.0-1.5); ABG HCO3 22.7 mmol/L (22.0-26.0); ABG METHEMOGLOBIN 0.3 % (0.0-1.5); ABG OXYGEN CONTENT 18.2 mL/dL (15.0-23.0); ABG OXYGEN SATURATION 96.1 % (95.0-98.0); ABG OXYHEMOGLOBIN 95.4 % (94.0-100.0); ABG PCO2 46 mmHg (35-45); ABG PH 7.336 (7.35-7.450); ABG TOTAL HEMOGLOBIN 13.5 G/dL (12.0-18.0); PO2, ARTERIAL BG 80.9 mmHg (84.0-92.0); SOURCE, BLOOD GAS ARTERIAL; TEMPERATURE, FAHRENHEIT, BG 97.7 FAHREN (96.0-98.6)
[2022-02-28 10:13] LABS: O2 DEVICE,BLOOD GAS VENTILATOR (ROOM AIR); PEEP,BG 5 cm H2O; PRESSURE SUPPORT, BG 5 cm H2O; SITE, BLOOD GAS ARTERIAL LINE; VENT MODE, BG Press. Support Vent. (ROOM AIR)
[2022-02-28 10:14] LABS: SPONTANEOUS VT, BG 388 ml
[2022-02-28 12:00] VITALS: BP 154/71
[2022-02-28] MEDS ORDERED: FUROSEMIDE 40 MG/4 ML VIAL IVP ONE (12:45)
[2022-02-28] MEDS: CefTRIAXone SODIUM 2 GM in DEXTROSE 5%-WATER 50 ML IV SCH (15:04)
[2022-02-28 16:00] VITALS: BP 141/71
[2022-02-28 20:00] VITALS: BP 152/66
[2022-02-28 20:26] LABS: GLUCOMETER DEV NAME(LOC) AHU.; GLUCOSE,POINT OF CARE 358 MG/DL (70-110)
[2022-02-28 20:27] LABS: GLUCOSE,POINT OF CARE 284 MG/DL (70-110)
[2022-02-28 20:27] LABS: GLUCOSE,POINT OF CARE 285 MG/DL (70-110)
[2022-02-28] MEDS: BUMETANIDE 0.25 MG/ML 4 ML VIAL IVP SCH (21:16)
[2022-02-28] MEDS: INSULIN GLARGINE,HUM.REC.ANLOG 100 UNITS/ML SQ SCH (21:26)
[2022-03-01] VITALS: BP 166/73
[2022-03-01] MEDS: MethylPREDNISolone SOD SUCC 125 MG/2 ML VIAL IVP SCH ×4 (00:52→17:19)
[2022-03-01] MEDS: HydrALAZINE HCL 20 MG/ML VIAL IVP PRN ×2 (00:52→09:19)
[2022-03-01] MEDS: INSULIN LISPRO 100 UNITS/ML SQ PRN ×4 (00:55→17:46)
[2022-03-01 00:57] LABS: GLUCOSE,POINT OF CARE 304 MG/DL (70-110)
[2022-03-01 01:31] LABS: GLUCOSE,POINT OF CARE 320 MG/DL (70-110)
[2022-03-01] MEDS ORDERED: SODIUM CHLORIDE 0.9% 250 ML IV ONE (01:39)
[2022-03-01] MEDS ORDERED: SODIUM CHLORIDE 0.9% 500 ML IV ONE (01:39)
[2022-03-01 04:00] VITALS: BP 159/68
[2022-03-01] MEDS: DOXYCYCLINE HYCLATE 100 MG in DEXTROSE 5%-WATER 100 ML IV SCH ×2 (05:06→17:20)
[2022-03-01] MEDS: DEXMEDETOMIDINE HCL 400 MCG in SODIUM CHLORIDE 0.9% 96 ML IV PRN (05:18)
[2022-03-01 06:14] LABS: CALCIUM, TOTAL 8.8 mg/dL (8.8-10.5); CREATININE 1.86 mg/dL (0.60-1.30); MAGNESIUM 1.6 mg/dL (1.80-2.40); PHOSPHORUS 3.6 mg/dL (2.5-4.9); POTASSIUM 4.5 mmol/L (3.5-5.1)
[2022-03-01 06:51] LABS: GLUCOSE,POINT OF CARE 321 MG/DL (70-110)
[2022-03-01] MEDS: HEPARIN SODIUM,PORCINE 5,000 UNITS/ML VIAL SQ SCH ×4 (07:57→15:41)
[2022-03-01] MEDS: PANTOPRAZOLE SODIUM 40 MG/VIAL IVP SCH (07:57)
[2022-03-01] MEDS: BUMETANIDE 0.25 MG/ML 4 ML VIAL IVP SCH ×2 (07:58→20:48)
[2022-03-01] MEDS: CARVEDILOL 3.125 MG TABLET GT SCH (07:59)
[2022-03-01] MEDS: DOCUSATE SODIUM 100 MG CAPSULE PO SCH ×2 (07:59→20:47)
[2022-03-01] MEDS: ETHYL ALCOHOL 62% ANTISEPTIC NASAL SANITIZER 0.6 ML AMPUL NASAL SCH ×2 (07:59→20:47)
[2022-03-01] MEDS: ASPIRIN 81 MG CHEWABLE TABLET PO SCH (07:59)
[2022-03-01 08:00] VITALS: BP 151/67
[2022-03-01] MEDS ORDERED: MAGNESIUM SULFATE 2 GM/WATER 50 ML IV ONE (08:00)
[2022-03-01] MEDS ORDERED: FUROSEMIDE 40 MG/4 ML VIAL IVP SCH (09:00)
[2022-03-01 11:46] LABS: ABG BASE EXCESS 2.8 mmol/L (-2.0-3.0); ABG CARBOXYHEMOGLOBIN 0.8 % (0.0-1.5); ABG HCO3 26.3 mmol/L (22.0-26.0); ABG METHEMOGLOBIN 0.3 % (0.0-1.5); ABG OXYGEN CONTENT 18.4 mL/dL (15.0-23.0); ABG OXYGEN SATURATION 96.3 % (95.0-98.0); ABG OXYHEMOGLOBIN 95.2 % (94.0-100.0); ABG PCO2 47 mmHg (35-45); ABG TOTAL HEMOGLOBIN 13.7 G/dL (12.0-18.0); SOURCE, BLOOD GAS ARTERIAL; TEMPERATURE, FAHRENHEIT, BG 97.9 FAHREN (96.0-98.6)
[2022-03-01 11:48] LABS: O2 DEVICE,BLOOD GAS VENTILATOR (ROOM AIR); SITE, BLOOD GAS ARTERIAL LINE; VENT MODE, BG Press. Support Vent. (ROOM AIR)
[2022-03-01 11:49] LABS: PRESSURE SUPPORT, BG 8 cm H2O
[2022-03-01 11:50] LABS: SPONTANEOUS VT, BG 452 ml
[2022-03-01 11:51] LABS: CPAP, BG 5 cm H2O
[2022-03-01 13:46] LABS: GLUCOSE,POINT OF CARE 303 MG/DL (70-110)
[2022-03-01 13:58] VITALS: BP 134/57
[2022-03-01] MEDS: CefTRIAXone SODIUM 2 GM in DEXTROSE 5%-WATER 50 ML IV SCH (15:40)
[2022-03-01 16:00] VITALS: BP 156/64
[2022-03-01 16:39] LABS: SPECIMENTYPE,BODY FLUID PLEURAL
[2022-03-01 17:00] LABS: APPEARANCE,SPUN,BODY FLUID CLEAR (CLEAR); APPEARANCE,UNSPUN,BODY FLUID HAZY (CLEAR); COLOR,BODY FLUID YELLOW (LT YELLOW); TOTAL VOLUME,BODY FLUID 3850 mL; WBC, BODY FLUID 520 /cu. mm.
[2022-03-01 17:23] LABS: LYMPHOCYTES,BODY FLUID 15 %; MONOCYTES,BODY FLUID 48 %; NEUTROPHILS,BODY FLUID 37 %
[2022-03-01 20:00] VITALS: BP 181/71
[2022-03-01 20:06] LABS: GLUCOSE,POINT OF CARE 225 MG/DL (70-110)
[2022-03-01] MEDS: ZOLPIDEM TARTRATE 5 MG TABLET PO PRN (20:48)
[2022-03-01] MEDS: INSULIN GLARGINE,HUM.REC.ANLOG 100 UNITS/ML SQ SCH (20:49)
[2022-03-01] MEDS ORDERED: CARVEDILOL 6.25 MG TABLET PO SCH (21:00)
[2022-03-02] VITALS: BP 153/88
[2022-03-02] MEDS: HydrALAZINE HCL 20 MG/ML VIAL IVP PRN ×2 (00:42→05:49)
[2022-03-02] MEDS: HEPARIN SODIUM,PORCINE 5,000 UNITS/ML VIAL SQ SCH ×4 (00:42→23:59)
[2022-03-02] MEDS: MethylPREDNISolone SOD SUCC 125 MG/2 ML VIAL IVP SCH ×2 (00:42→05:33)
[2022-03-02] MEDS: INSULIN LISPRO 100 UNITS/ML SQ PRN ×6 (00:43→21:27)
[2022-03-02 00:51] LABS: GLUCOSE,POINT OF CARE 291 MG/DL (70-110)
[2022-03-02 04:00] VITALS: BP 156/88
[2022-03-02] MEDS: DOXYCYCLINE HYCLATE 100 MG in DEXTROSE 5%-WATER 100 ML IV SCH (05:32)
[2022-03-02] MEDS ORDERED: SODIUM CHLORIDE 0.9% 250 ML IV ONE (05:33)
[2022-03-02 06:01] LABS: CALCIUM, TOTAL 8.9 mg/dL (8.8-10.5); CREATININE 1.87 mg/dL (0.60-1.30); MAGNESIUM 1.9 mg/dL (1.80-2.40); PHOSPHORUS 4.3 mg/dL (2.5-4.9); POTASSIUM 4.5 mmol/L (3.5-5.1)
[2022-03-02 07:05] LABS: EOSINOPHILS % (AUTO) 0 % (1.0-6.0); HEMATOCRIT 39.5 % (41-53); HEMOGLOBIN 12.6 g/dL (13.5-17.5); LYMPHOCYTES # (AUTO) 0.4 K/uL (1.0-4.8); LYMPHOCYTES % (AUTO) 2.6 % (22.0-44.0); MEAN CORPUSCULAR HEMOGLOBIN 27.7 pg (26.0-34.0); MEAN CORPUSCULAR HGB CONC 31.8 G/dL (31.0-37.0); MEAN CORPUSCULAR VOLUME 87 fL (80-100); MONOCYTES # (AUTO) 0.7 K/uL (0.1-1.0); MONOCYTES % (AUTO) 4.3 % (2.0-9.0); NEUTROPHILS # (AUTO) 14.4 K/uL (1.8-7.7); PLATELET COUNT (AUTO) 123 K/uL (150-450); RED BLOOD CELL COUNT(AUTO) 4.53 MIL/uL (4.50-5.90); RED CELL DISTRIBUTION WIDTH 19.6 % (11.5-14.5)
[2022-03-02 07:27] LABS: NEUTROPHILS % (AUTO) 93.1 % (40.0-70.0)
[2022-03-02 08:00] VITALS: BP 152/101
[2022-03-02 08:07] LABS: GLUCOSE,POINT OF CARE 301 MG/DL (70-110)
[2022-03-02 08:10] LABS: GLUCOSE,POINT OF CARE 341 MG/DL (70-110)
[2022-03-02] MEDS: CARVEDILOL 12.5 MG TABLET PO SCH ×2 (08:52→21:32)
[2022-03-02] MEDS: DOCUSATE SODIUM 100 MG CAPSULE PO SCH ×2 (08:52→21:32)
[2022-03-02] MEDS: ETHYL ALCOHOL 62% ANTISEPTIC NASAL SANITIZER 0.6 ML AMPUL NASAL SCH ×2 (08:52→21:33)
[2022-03-02] MEDS: PANTOPRAZOLE SODIUM 40 MG/VIAL IVP SCH (08:53)
[2022-03-02] MEDS: ASPIRIN 81 MG CHEWABLE TABLET PO SCH (08:53)
[2022-03-02] MEDS: BUMETANIDE 0.25 MG/ML 4 ML VIAL IVP SCH ×2 (08:54→22:26)
[2022-03-02 12:00] VITALS: BP 127/86
[2022-03-02 16:00] VITALS: BP 119/74
[2022-03-02 18:16] LABS: GLUCOSE,POINT OF CARE 328 MG/DL (70-110)
[2022-03-02 20:20] VITALS: BP 150/75
[2022-03-02] MEDS: INSULIN GLARGINE,HUM.REC.ANLOG 100 UNITS/ML SQ SCH (21:27)
[2022-03-02] MEDS: BENZONATATE 100 MG CAPSULE PO PRN (21:32)
[2022-03-02] MEDS: ZOLPIDEM TARTRATE 5 MG TABLET PO PRN (21:33)
[2022-03-02 21:51] LABS: GLUCOMETER DEV NAME(LOC) 5N.1C; GLUCOSE,POINT OF CARE 209 MG/DL (70-110)
[2022-03-03 00:52] VITALS: BP 132/69
[2022-03-03 04:52] VITALS: BP 121/71
[2022-03-03 06:51] LABS: GLUCOMETER DEV NAME(LOC) 5S.1B; GLUCOSE,POINT OF CARE 77 MG/DL (70-110)
[2022-03-03 07:10] VITALS: BP 132/80
[2022-03-03 07:31] LABS: CALCIUM, TOTAL 8.9 mg/dL (8.8-10.5); CREATININE 1.7 mg/dL (0.60-1.30); MAGNESIUM 1.9 mg/dL (1.80-2.40); PHOSPHORUS 2.9 mg/dL (2.5-4.9); POTASSIUM 3.8 mmol/L (3.5-5.1)
[2022-03-03] MEDS: HEPARIN SODIUM,PORCINE 5,000 UNITS/ML VIAL SQ SCH ×2 (08:58→17:58)
[2022-03-03] MEDS: PANTOPRAZOLE SODIUM 40 MG/VIAL IVP SCH (08:58)
[2022-03-03] MEDS: CARVEDILOL 12.5 MG TABLET PO SCH ×2 (08:59→20:44)
[2022-03-03] MEDS: ASPIRIN 81 MG CHEWABLE TABLET PO SCH (08:59)
[2022-03-03] MEDS: BUMETANIDE 0.25 MG/ML 4 ML VIAL IVP SCH (08:59)
[2022-03-03] MEDS: DOCUSATE SODIUM 100 MG CAPSULE PO SCH ×2 (08:59→20:44)
[2022-03-03] MEDS: ETHYL ALCOHOL 62% ANTISEPTIC NASAL SANITIZER 0.6 ML AMPUL NASAL SCH ×2 (09:00→20:45)
[2022-03-03 12:00] VITALS: BP 110/74
[2022-03-03 13:37] LABS: GLUCOMETER DEV NAME(LOC) 5N.1C; GLUCOSE,POINT OF CARE 124 MG/DL (70-110)
[2022-03-03] MEDS: BENZONATATE 100 MG CAPSULE PO PRN (15:04)
[2022-03-03 15:46] VITALS: BP 131/77
[2022-03-03] MEDS: INSULIN LISPRO 100 UNITS/ML SQ PRN ×2 (17:58→20:52)
[2022-03-03 19:16] LABS: GLUCOSE,POINT OF CARE 256 MG/DL (70-110)
[2022-03-03 20:21] VITALS: BP 122/56
[2022-03-03] MEDS: BUMETANIDE 1 MG TABLET PO SCH (20:44)
[2022-03-03] MEDS: INSULIN GLARGINE,HUM.REC.ANLOG 100 UNITS/ML SQ SCH (20:53)
[2022-03-04] MEDS: ZOLPIDEM TARTRATE 5 MG TABLET PO PRN (00:18)
[2022-03-04] MEDS: HEPARIN SODIUM,PORCINE 5,000 UNITS/ML VIAL SQ SCH ×3 (00:18→15:58)
[2022-03-04 00:37] VITALS: BP 126/94
[2022-03-04] MEDS: BENZONATATE 100 MG CAPSULE PO PRN (03:54)
[2022-03-04 03:56] LABS: GLUCOMETER DEV NAME(LOC) 5S.2B; GLUCOSE,POINT OF CARE 226 MG/DL (70-110)
[2022-03-04 03:57] LABS: GLUCOMETER DEV NAME(LOC) 5N.1C; GLUCOSE,POINT OF CARE 193 MG/DL (70-110)
[2022-03-04 04:20] VITALS: BP 121/88
[2022-03-04 06:41] LABS: EOSINOPHILS % (AUTO) 1.1 % (1.0-6.0); HEMATOCRIT 35.1 % (41-53); HEMOGLOBIN 11.3 g/dL (13.5-17.5); MEAN CORPUSCULAR HGB CONC 32.2 G/dL (31.0-37.0); MEAN CORPUSCULAR VOLUME 87 fL (80-100); MONOCYTES # (AUTO) 1.2 K/uL (0.1-1.0); MONOCYTES % (AUTO) 10.2 % (2.0-9.0); NEUTROPHILS # (AUTO) 9.8 K/uL (1.8-7.7); NEUTROPHILS % (AUTO) 80.7 % (40.0-70.0); RED BLOOD CELL COUNT(AUTO) 4.05 MIL/uL (4.50-5.90); RED CELL DISTRIBUTION WIDTH 19.5 % (11.5-14.5)
[2022-03-04 06:47] LABS: PLATELET COUNT (AUTO) 108 K/uL (150-450)
[2022-03-04 06:53] LABS: CALCIUM, TOTAL 8.3 mg/dL (8.8-10.5); CREATININE 1.32 mg/dL (0.60-1.30); MAGNESIUM 1.6 mg/dL (1.80-2.40); PHOSPHORUS 2.3 mg/dL (2.5-4.9); POTASSIUM 3.6 mmol/L (3.5-5.1)
[2022-03-04 07:11] LABS: GLUCOMETER DEV NAME(LOC) 5S.1B; GLUCOSE,POINT OF CARE 137 MG/DL (70-110)
[2022-03-04 07:30] VITALS: BP 117/69
[2022-03-04] MEDS: PANTOPRAZOLE SODIUM 40 MG/VIAL IVP SCH (09:00)
[2022-03-04] MEDS ORDERED: MAGNESIUM SULFATE 3 GM in DEXTROSE 5%-WATER 100 ML IV ONE (09:30)
[2022-03-04] MEDS: ASPIRIN 81 MG CHEWABLE TABLET PO SCH (10:20)
[2022-03-04] MEDS: CARVEDILOL 12.5 MG TABLET PO SCH ×2 (10:20→20:19)
[2022-03-04] MEDS: DOCUSATE SODIUM 100 MG CAPSULE PO SCH ×2 (10:20→20:19)
[2022-03-04] MEDS: BUMETANIDE 1 MG TABLET PO SCH ×2 (10:21→20:19)
[2022-03-04] MEDS: ETHYL ALCOHOL 62% ANTISEPTIC NASAL SANITIZER 0.6 ML AMPUL NASAL SCH ×2 (10:22→20:20)
[2022-03-04] MEDS: SODIUM,POTASSIUM PHOSPHATES POWDER PACKET PO SCH ×2 (10:27→20:19)
[2022-03-04 11:30] VITALS: BP 139/70
[2022-03-04] MEDS: INSULIN LISPRO 100 UNITS/ML SQ PRN ×3 (12:53→21:40)
[2022-03-04 12:57] LABS: GLUCOMETER DEV NAME(LOC) 5S.1B; GLUCOSE,POINT OF CARE 211 MG/DL (70-110)
[2022-03-04 16:03] VITALS: BP 132/73
[2022-03-04 20:11] VITALS: BP 134/73
[2022-03-04 20:46] LABS: GLUCOMETER DEV NAME(LOC) 5S.2B; GLUCOSE,POINT OF CARE 239 MG/DL (70-110)
[2022-03-04] MEDS: INSULIN GLARGINE,HUM.REC.ANLOG 100 UNITS/ML SQ SCH (21:41)
[2022-03-04 22:07] LABS: GLUCOMETER DEV NAME(LOC) 5S.2B; GLUCOSE,POINT OF CARE 241 MG/DL (70-110)
[2022-03-05] VITALS (7 sets, daily range): BP systolic 107–155; BP diastolic 61–86
[2022-03-05] MEDS: HEPARIN SODIUM,PORCINE 5,000 UNITS/ML VIAL SQ SCH ×4 (00:10→23:26)
[2022-03-05] MEDS: ZOLPIDEM TARTRATE 5 MG TABLET PO PRN (00:34)
[2022-03-05 06:19] LABS: ANION GAP 3 mmol/L (8-16); CALCIUM, TOTAL 8.1 mg/dL (8.8-10.5); CARBON DIOXIDE 34 mmol/L (22-29); CHLORIDE 106 mmol/L (98-107); CREATININE 1.23 mg/dL (0.60-1.30); GLOMERULAR FILTR. RATE CALC > 60 mL/min (>60); GLUCOSE,RANDOM 128 mg/dL (70-110); PHOSPHORUS 2.1 mg/dL (2.5-4.9); POTASSIUM 3.5 mmol/L (3.5-5.1); SODIUM SERUM 143 mmol/L (136-145); UREA NITROGEN, BLOOD 42 mg/dL (7-18)
[2022-03-05] MEDS: DOCUSATE SODIUM 100 MG CAPSULE PO SCH ×2 (08:00→19:56)
[2022-03-05] MEDS: ASPIRIN 81 MG CHEWABLE TABLET PO SCH (08:00)
[2022-03-05] MEDS: BENZONATATE 100 MG CAPSULE PO PRN (08:00)
[2022-03-05] MEDS: PANTOPRAZOLE SODIUM 40 MG/VIAL IVP SCH (08:01)
[2022-03-05] MEDS: BUMETANIDE 1 MG TABLET PO SCH (08:01)
[2022-03-05] MEDS: CARVEDILOL 12.5 MG TABLET PO SCH ×2 (08:01→19:56)
[2022-03-05] MEDS: ETHYL ALCOHOL 62% ANTISEPTIC NASAL SANITIZER 0.6 ML AMPUL NASAL SCH ×2 (08:01→19:56)
[2022-03-05] MEDS: LOSARTAN POTASSIUM 25 MG TABLET PO SCH (09:53)
[2022-03-05] MEDS ORDERED: MAGNESIUM SULFATE 2 GM/WATER 50 ML IV PRN (10:15)
[2022-03-05] MEDS ORDERED: MAGNESIUM SULFATE 4 GM/WATER 100 ML IV PRN (10:15)
[2022-03-05 10:58] LABS: ALBUMIN 2.5 g/dL (3.4-5.0)
[2022-03-05] MEDS ORDERED: SOD PHOS DI, MONO/K PHOS MONO 250 MG TABLET PO ONE (11:00)
[2022-03-05] MEDS: MAGNESIUM OXIDE 400 MG TABLET PO PRN ×3 (11:10→19:05)
[2022-03-05] MEDS: INSULIN LISPRO 100 UNITS/ML SQ PRN ×3 (11:13→19:57)
[2022-03-05 13:06] LABS: GLUCOMETER DEV NAME(LOC) 5N.1C; GLUCOSE,POINT OF CARE 186 MG/DL (70-110)
[2022-03-05 17:36] LABS: GLUCOMETER DEV NAME(LOC) 5S.1B; GLUCOSE,POINT OF CARE 215 MG/DL (70-110)
[2022-03-05] MEDS: INSULIN GLARGINE,HUM.REC.ANLOG 100 UNITS/ML SQ SCH (19:57)
[2022-03-05 20:36] LABS: GLUCOMETER DEV NAME(LOC) 5S.1B; GLUCOSE,POINT OF CARE 243 MG/DL (70-110)
[2022-03-06 04:29] VITALS: BP 141/85
[2022-03-06] MEDS: INSULIN LISPRO 100 UNITS/ML SQ PRN ×2 (06:01→11:50)
[2022-03-06 07:31] VITALS: BP 134/82
[2022-03-06] MEDS: HEPARIN SODIUM,PORCINE 5,000 UNITS/ML VIAL SQ SCH (08:06)
[2022-03-06] MEDS: CARVEDILOL 12.5 MG TABLET PO SCH (08:07)
[2022-03-06] MEDS: ETHYL ALCOHOL 62% ANTISEPTIC NASAL SANITIZER 0.6 ML AMPUL NASAL SCH (08:07)
[2022-03-06] MEDS: LOSARTAN POTASSIUM 25 MG TABLET PO SCH (08:07)
[2022-03-06] MEDS: DOCUSATE SODIUM 100 MG CAPSULE PO SCH (08:07)
[2022-03-06] MEDS: ASPIRIN 81 MG CHEWABLE TABLET PO SCH (08:08)
[2022-03-06] MEDS: PANTOPRAZOLE SODIUM 40 MG/VIAL IVP SCH (08:09)
[2022-03-06] MEDS ORDERED: BUMETANIDE 1 MG TABLET PO SCH (09:00)
[2022-03-06 09:22] LABS: BASOPHILS % (AUTO) 0.1 % (0.0-2.0); EOSINOPHILS % (AUTO) 2.7 % (1.0-6.0); HEMATOCRIT 34.7 % (41-53); HEMOGLOBIN 11.5 g/dL (13.5-17.5); LYMPHOCYTES # (AUTO) 0.7 K/uL (1.0-4.8); LYMPHOCYTES % (AUTO) 10.6 % (22.0-44.0); MEAN CORPUSCULAR HEMOGLOBIN 28.9 pg (26.0-34.0); MEAN CORPUSCULAR HGB CONC 33.1 G/dL (31.0-37.0); MEAN CORPUSCULAR VOLUME 87 fL (80-100); MONOCYTES % (AUTO) 15.2 % (2.0-9.0); NEUTROPHILS # (AUTO) 4.9 K/uL (1.8-7.7); NEUTROPHILS % (AUTO) 71.4 % (40.0-70.0); PLATELET COUNT (AUTO) 106 K/uL (150-450); RED BLOOD CELL COUNT(AUTO) 3.98 MIL/uL (4.50-5.90); RED CELL DISTRIBUTION WIDTH 18.6 % (11.5-14.5)
[2022-03-06 09:43] LABS: ALANINE AMINOTRANSFERASE 20 U/L (12-78); ALBUMIN 2.4 g/dL (3.4-5.0); ALKALINE PHOSPHATASE 116 U/L (46-116); ANION GAP 1 mmol/L (8-16); ASPARTATE AMINOTRANSFERASE 20 U/L (15-37); BILIRUBIN,TOTAL 0.6 mg/dL (0.1-1.0); CARBON DIOXIDE 34 mmol/L (22-29); CHLORIDE 105 mmol/L (98-107); CREATININE 1.02 mg/dL (0.60-1.30); GLOMERULAR FILTR. RATE CALC > 60 mL/min (>60); GLUCOSE,RANDOM 250 mg/dL (70-110); POTASSIUM 3.7 mmol/L (3.5-5.1); SODIUM SERUM 140 mmol/L (136-145); TOTAL PROTEIN, SERUM 5.3 g/dL (6.4-8.2); UREA NITROGEN, BLOOD 29 mg/dL (7-18)
[2022-03-06 09:45] LABS: B-TYPE NATRIURETIC PEPTIDE 1350 pg/mL (0-100)
[2022-03-06] MEDS ORDERED: MAGNESIUM SULFATE 3 GM in DEXTROSE 5%-WATER 100 ML IV ONE (10:15)
[2022-03-06] MEDS ORDERED: BUME0.253 IM (11:55)
[2022-03-06 11:58] VITALS: BP 142/79
[2022-03-06 12:01] LABS: GLUCOMETER DEV NAME(LOC) 5S.2B; GLUCOSE,POINT OF CARE 240 MG/DL (70-110)
[2022-03-06 15:11] VITALS: BP 120/79
[2022-03-06 17:22] LABS: GLUCOMETER DEV NAME(LOC) 5N.1C; GLUCOSE,POINT OF CARE 229 MG/DL (70-110)
== END 2022-03-06 20:15 | disposition home or self-care (01) | DRG 130 ==
LOC: EMS 00:09 → 5S 15:10 → ICU 02-23 18:01 → 5S 03-02 19:55
PROVIDERS: ADMIT Internal Medicine; ATTEND Internal Medicine
PROC: 5A09357 Assistance with Respiratory Ventilation, Less than 24 Consecutive Hours, Continuous Positive Airway Pressure (ICD-10-PCS; principal; 2022-02-23)
PROC: 0BH17EZ Insertion of Endotracheal Airway into Trachea, Via Natural or Artificial Opening (ICD-10-PCS; 2022-02-24)
PROC: 5A1955Z Respiratory Ventilation, Greater than 96 Consecutive Hours (ICD-10-PCS; 2022-02-24)
PROC: 0B9J8ZX Drainage of Left Lower Lung Lobe, Via Natural or Artificial Opening Endoscopic, Diagnostic (ICD-10-PCS; 2022-02-24)
PROC: 0W9G3ZZ Drainage of Peritoneal Cavity, Percutaneous Approach (ICD-10-PCS; 2022-03-01)
PROC: 05HB33Z Insertion of Infusion Device into Right Basilic Vein, Percutaneous Approach (ICD-10-PCS; 2022-03-03)
DX: J96.02 Acute respiratory failure with hypercapnia (principal); J69.0 Pneumonitis due to inhalation of food and vomit; G92.8 Other toxic encephalopathy; I50.43 Acute on chronic combined systolic (congestive) and diastolic (congestive) heart failure; N17.9 Acute kidney failure, unspecified; R18.8 Other ascites; E66.2 Morbid (severe) obesity with alveolar hypoventilation; E87.1 Hypo-osmolality and hyponatremia; E83.39 Other disorders of phosphorus metabolism; J44.0 Chronic obstructive pulmonary disease with (acute) lower respiratory infection; Z20.822 Contact with and (suspected) exposure to COVID-19; J96.01 Acute respiratory failure with hypoxia; J44.1 Chronic obstructive pulmonary disease with (acute) exacerbation; E87.2 Acidosis; E11.22 Type 2 diabetes mellitus with diabetic chronic kidney disease; D64.9 Anemia, unspecified; N50.819 Testicular pain, unspecified; N50.82 Scrotal pain; N50.89 Other specified disorders of the male genital organs; I13.0 Hypertensive heart and chronic kidney disease with heart failure and stage 1 through stage 4 chronic kidney disease, or unspecified chronic kidney disease; N18.2 Chronic kidney disease, stage 2 (mild); E78.5 Hyperlipidemia, unspecified; E83.42 Hypomagnesemia; F15.10 Other stimulant abuse, uncomplicated; I36.1 Nonrheumatic tricuspid (valve) insufficiency; I25.10 Atherosclerotic heart disease of native coronary artery without angina pectoris; E87.5 Hyperkalemia; I25.5 Ischemic cardiomyopathy; Z99.11 Dependence on respirator [ventilator] status; Z82.49 Family history of ischemic heart disease and other diseases of the circulatory system; Z91.19 Patient's noncompliance with other medical treatment and regimen; Z83.3 Family history of diabetes mellitus; Z95.5 Presence of coronary angioplasty implant and graft; Z68.36 Body mass index [BMI] 36.0-36.9, adult
CPT/HCPCS: 31624; 36245; 36569; 36600; 49083; 70450; 71045; 71250; 76705; 76870; 76937; 76942; 80048; 80053; 80307; 81001; 81002; 82040; 82042; 82140; 82570; 82805; 82962; 83036; 83605; 83615; 83735; 83880; 84100; 84156; 84157; 84166; 84300; 84484; 85025; 85362; 85384; 85610; 87015; 87040; 87070; 87075; 87086; 87101; 87205; 87206; 87220; 87340; 88112; 88305; 89051; 90935; 93005; 93306; 93970; 94002; 94003; 94640; 94660; 97110; 97116; 97163; 97166; 97530; 97535; 99285; C9113; G0378; J0360; J0696; J1250; J1580; J1644; J1815; J1940; J2250; J2370; J2405; J2543; J2704; J2930; J3010; J3475; J3490; J7030; J7040; J7050; J7060; P9046; Q9967; 36415-L1; 36415-TC; J7613

== ENCOUNTER 2022-04-16 15:42 | Inpatient (IN) | payer OTHER ==
[~2022-04-16] VITALS: Ht 175.3 cm; Wt 97.5 kg
[~2022-04-16 15:42] MED LIST changes: +BUME0.253 IM; -CEPH-558 PO; -CLIN-26 PO; -FURO40 PO; -MAGN400T7 PO; -SPIR-37 PO
[2022-04-16] MEDS ORDERED: AMPICILLIN SODIUM/SULBACTAM NA 3 GM in SODIUM CHLORIDE 0.9% 100 ML IV ONE (17:00)
[2022-04-16 17:18] LABS: BASOPHILS % (AUTO) 0.4 % (0.0-2.0); EOSINOPHILS % (AUTO) 3.1 % (1.0-6.0); HEMATOCRIT 35.4 % (41-53); HEMOGLOBIN 11.6 g/dL (13.5-17.5); LYMPHOCYTES # (AUTO) 1.9 K/uL (1.0-4.8); LYMPHOCYTES % (AUTO) 26.5 % (22.0-44.0); MEAN CORPUSCULAR HEMOGLOBIN 28.3 pg (26.0-34.0); MEAN CORPUSCULAR HGB CONC 32.7 G/dL (31.0-37.0); MEAN CORPUSCULAR VOLUME 86 fL (80-100); MONOCYTES # (AUTO) 0.8 K/uL (0.1-1.0); MONOCYTES % (AUTO) 10.8 % (2.0-9.0); NEUTROPHILS # (AUTO) 4.2 K/uL (1.8-7.7); NEUTROPHILS % (AUTO) 59.2 % (40.0-70.0); PLATELET COUNT (AUTO) 322 K/uL (150-450); RED CELL DISTRIBUTION WIDTH 18.8 % (11.5-14.5)
[2022-04-16 17:26] LABS: ANION GAP 7 mmol/L (8-16); CALCIUM, TOTAL 8.1 mg/dL (8.8-10.5); CARBON DIOXIDE 25 mmol/L (22-29); CHLORIDE 101 mmol/L (98-107); CREATININE 0.81 mg/dL (0.60-1.30); GLUCOSE,RANDOM 138 mg/dL (70-110); POTASSIUM 3.7 mmol/L (3.5-5.1); SODIUM SERUM 133 mmol/L (136-145); UREA NITROGEN, BLOOD 6 mg/dL (7-18)
[2022-04-16 17:27] LABS: GLOMERULAR FILTR. RATE CALC > 60 mL/min (>60)
[2022-04-16 17:28] LABS: B-TYPE NATRIURETIC PEPTIDE 3510 pg/mL (0-100)
[2022-04-16] MEDS ORDERED: BISACODYL 10 MG RECTAL RECTAL SUPPOSITORY PR PRN (17:30)
[2022-04-16] MEDS ORDERED: ONDANSETRON HCL 4 MG/2 ML VIAL IVP PRN (17:30)
[2022-04-16] MEDS ORDERED: ACETAMINOPHEN 325 MG TABLET PO PRN (17:30)
[2022-04-16] MEDS ORDERED: MAGNESIUM HYDROXIDE SUSPENSION 30 ML UDCUP PO PRN (17:30)
[2022-04-16 17:32] LABS: ALANINE AMINOTRANSFERASE 12 U/L (12-78); ALBUMIN 1.9 g/dL (3.4-5.0); ALKALINE PHOSPHATASE 129 U/L (46-116); ASPARTATE AMINOTRANSFERASE 28 U/L (15-37); BILIRUBIN,TOTAL 1.2 mg/dL (0.1-1.0); TOTAL PROTEIN, SERUM 6.1 g/dL (6.4-8.2)
[2022-04-16 17:39] LABS: PLATELET MORPHOLOGY COMMENT LARGE PLTS PRESENT
[2022-04-16 20:44] VITALS: BP 150/104
[2022-04-16] MEDS: ZOLPIDEM TARTRATE 5 MG TABLET PO PRN (21:16)
[2022-04-16] MEDS: DOCUSATE SODIUM 100 MG CAPSULE PO SCH (21:16)
[2022-04-16] MEDS: APIXABAN 5 MG TABLET PO SCH (21:16)
[2022-04-16 21:37] LABS: COVID AG,FIA SOURCE NASAL SWAB
[2022-04-17] MEDS: AMPICILLIN SODIUM/SULBACTAM NA 1.5 GM in SODIUM CHLORIDE 0.9% 50 ML IV SCH ×3 (00:21→17:53)
[2022-04-17 00:41] LABS: GLUCOMETER DEV NAME(LOC) 6N.2; GLUCOSE,POINT OF CARE 123 MG/DL (70-110)
[2022-04-17 05:05] VITALS: BP 152/98
[2022-04-17 06:01] LABS: BASOPHILS % (AUTO) 1.1 % (0.0-2.0); EOSINOPHILS % (AUTO) 2.9 % (1.0-6.0); HEMATOCRIT 37.8 % (41-53); HEMOGLOBIN 12.5 g/dL (13.5-17.5); LYMPHOCYTES # (AUTO) 2.4 K/uL (1.0-4.8); LYMPHOCYTES % (AUTO) 33.5 % (22.0-44.0); MEAN CORPUSCULAR HEMOGLOBIN 28.5 pg (26.0-34.0); MEAN CORPUSCULAR VOLUME 86 fL (80-100); MONOCYTES # (AUTO) 0.8 K/uL (0.1-1.0); NEUTROPHILS # (AUTO) 3.6 K/uL (1.8-7.7); NEUTROPHILS % (AUTO) 50.5 % (40.0-70.0); PLATELET COUNT (AUTO) 339 K/uL (150-450); RED BLOOD CELL COUNT(AUTO) 4.39 MIL/uL (4.50-5.90); RED CELL DISTRIBUTION WIDTH 19.1 % (11.5-14.5)
[2022-04-17 06:11] LABS: ANION GAP 7 mmol/L (8-16); CALCIUM, TOTAL 8.5 mg/dL (8.8-10.5); CARBON DIOXIDE 28 mmol/L (22-29); CHLORIDE 101 mmol/L (98-107); CREATININE 0.97 mg/dL (0.60-1.30); GLUCOSE,RANDOM 170 mg/dL (70-110); POTASSIUM 3.6 mmol/L (3.5-5.1); SODIUM SERUM 136 mmol/L (136-145); UREA NITROGEN, BLOOD 7 mg/dL (7-18)
[2022-04-17 06:16] LABS: GLOMERULAR FILTR. RATE CALC > 60 mL/min (>60)
[2022-04-17 07:37] VITALS: BP 154/94
[2022-04-17] MEDS: METOPROLOL SUCCINATE 25 MG ER TABLET PO SCH (09:02)
[2022-04-17] MEDS: BUMETANIDE 0.25 MG/ML 4 ML VIAL IM SCH (09:03)
[2022-04-17] MEDS: PANTOPRAZOLE SODIUM 40 MG DR TABLET PO SCH (09:03)
[2022-04-17] MEDS: LOSARTAN POTASSIUM 50 MG TABLET PO SCH (09:03)
[2022-04-17] MEDS: APIXABAN 5 MG TABLET PO SCH ×2 (09:03→21:30)
[2022-04-17] MEDS: DOCUSATE SODIUM 100 MG CAPSULE PO SCH ×2 (09:04→21:30)
[2022-04-17] MEDS ORDERED: SODIUM CHLORIDE 0.9% 1,000 ML IV ONE (09:15)
[2022-04-17] MEDS: ERYTHROMYCIN 0.5% 3.5 GM TUBE OPHTHALMIC OINTMENT OU SCH ×2 (10:28→17:53)
[2022-04-17 15:28] VITALS: BP 137/95
[2022-04-17] MEDS ORDERED: ERYTHROMYCIN 0.5% 3.5 GM TUBE OPHTHALMIC OINTMENT OU SCH (16:00)
[2022-04-17 18:51] LABS: GLUCOMETER DEV NAME(LOC) 6N.1; GLUCOSE,POINT OF CARE 179 MG/DL (70-110)
[2022-04-17 19:53] VITALS: BP 129/82
[2022-04-18] MEDS: AMPICILLIN SODIUM/SULBACTAM NA 1.5 GM in SODIUM CHLORIDE 0.9% 50 ML IV SCH ×3 (01:18→17:51)
[2022-04-18] MEDS: ERYTHROMYCIN 0.5% 3.5 GM TUBE OPHTHALMIC OINTMENT OU SCH ×3 (01:29→17:52)
[2022-04-18 04:12] VITALS: BP 120/87
[2022-04-18] MEDS: MORPHINE SULFATE 2 MG/ML SYRINGE IVP PRN (05:08)
[2022-04-18 06:40] LABS: BASOPHILS % (AUTO) 1.2 % (0.0-2.0); EOSINOPHILS % (AUTO) 4.3 % (1.0-6.0); HEMATOCRIT 41.1 % (41-53); HEMOGLOBIN 13.4 g/dL (13.5-17.5); LYMPHOCYTES # (AUTO) 3.3 K/uL (1.0-4.8); LYMPHOCYTES % (AUTO) 41.7 % (22.0-44.0); MEAN CORPUSCULAR HEMOGLOBIN 28.4 pg (26.0-34.0); MEAN CORPUSCULAR HGB CONC 32.6 G/dL (31.0-37.0); MEAN CORPUSCULAR VOLUME 87 fL (80-100); MONOCYTES % (AUTO) 12.9 % (2.0-9.0); NEUTROPHILS # (AUTO) 3.1 K/uL (1.8-7.7); NEUTROPHILS % (AUTO) 39.9 % (40.0-70.0); PLATELET COUNT (AUTO) 366 K/uL (150-450); RED BLOOD CELL COUNT(AUTO) 4.71 MIL/uL (4.50-5.90); RED CELL DISTRIBUTION WIDTH 19.2 % (11.5-14.5)
[2022-04-18] MEDS: HYDROCODONE/ACETAMINOPHEN 5-325 MG TABLET PO PRN ×2 (06:47→18:01)
[2022-04-18 07:49] VITALS: BP 136/90
[2022-04-18] MEDS: PANTOPRAZOLE SODIUM 40 MG DR TABLET PO SCH (08:17)
[2022-04-18] MEDS: APIXABAN 5 MG TABLET PO SCH ×2 (08:17→20:52)
[2022-04-18] MEDS: LOSARTAN POTASSIUM 50 MG TABLET PO SCH (08:18)
[2022-04-18] MEDS: METOPROLOL SUCCINATE 25 MG ER TABLET PO SCH (08:18)
[2022-04-18] MEDS: DOCUSATE SODIUM 100 MG CAPSULE PO SCH ×2 (08:18→21:00)
[2022-04-18] MEDS: BUMETANIDE 0.25 MG/ML 4 ML VIAL IM SCH (08:18)
[2022-04-18 15:09] VITALS: BP 129/75
[2022-04-18] MEDS ORDERED: SODIUM CHLORIDE 0.9% 250 ML IV ONE (16:55)
[2022-04-18 19:26] VITALS: BP 123/63
[2022-04-19] MEDS: ZOLPIDEM TARTRATE 5 MG TABLET PO PRN ×2 (00:57→23:53)
[2022-04-19] MEDS: AMPICILLIN SODIUM/SULBACTAM NA 1.5 GM in SODIUM CHLORIDE 0.9% 50 ML IV SCH ×3 (00:57→17:15)
[2022-04-19] MEDS: ERYTHROMYCIN 0.5% 3.5 GM TUBE OPHTHALMIC OINTMENT OU SCH ×3 (00:58→17:16)
[2022-04-19 05:31] VITALS: BP 119/69
[2022-04-19 07:10] LABS: BASOPHILS % (AUTO) 2.8 % (0.0-2.0); EOSINOPHILS % (AUTO) 5.8 % (1.0-6.0); HEMATOCRIT 44.8 % (41-53); HEMOGLOBIN 14.6 g/dL (13.5-17.5); LYMPHOCYTES # (AUTO) 3.4 K/uL (1.0-4.8); LYMPHOCYTES % (AUTO) 43.4 % (22.0-44.0); MEAN CORPUSCULAR HEMOGLOBIN 28.4 pg (26.0-34.0); MEAN CORPUSCULAR HGB CONC 32.6 G/dL (31.0-37.0); MEAN CORPUSCULAR VOLUME 87 fL (80-100); MONOCYTES # (AUTO) 0.8 K/uL (0.1-1.0); MONOCYTES % (AUTO) 10.8 % (2.0-9.0); NEUTROPHILS # (AUTO) 2.9 K/uL (1.8-7.7); NEUTROPHILS % (AUTO) 37.2 % (40.0-70.0); PLATELET COUNT (AUTO) 365 K/uL (150-450); RED BLOOD CELL COUNT(AUTO) 5.14 MIL/uL (4.50-5.90); RED CELL DISTRIBUTION WIDTH 18.9 % (11.5-14.5)
[2022-04-19 07:31] VITALS: BP 113/62
[2022-04-19 07:31] LABS: INR 1.6 (0.9-1.1); PROTHROMBIN TIME 16.9 SEC (9.4-11.6)
[2022-04-19] MEDS: DOCUSATE SODIUM 100 MG CAPSULE PO SCH ×2 (09:00→20:09)
[2022-04-19] MEDS ORDERED: LIDOCAINE/PF 1% 5 ML VIAL ONE (10:28)
[2022-04-19 11:12] VITALS: BP 129/94
[2022-04-19] MEDS: PANTOPRAZOLE SODIUM 40 MG DR TABLET PO SCH (11:18)
[2022-04-19] MEDS: APIXABAN 5 MG TABLET PO SCH ×2 (11:18→20:08)
[2022-04-19] MEDS: METOPROLOL SUCCINATE 25 MG ER TABLET PO SCH (11:18)
[2022-04-19] MEDS: LOSARTAN POTASSIUM 50 MG TABLET PO SCH (11:18)
[2022-04-19] MEDS: HYDROCODONE/ACETAMINOPHEN 5-325 MG TABLET PO PRN ×2 (11:22→20:08)
[2022-04-19] MEDS ORDERED: BUMETANIDE 0.25 MG/ML 4 ML VIAL IVP ONE (11:30)
[2022-04-19 15:31] VITALS: BP 138/68
[2022-04-19 19:55] VITALS: BP 106/74
[2022-04-20] MEDS: AMPICILLIN SODIUM/SULBACTAM NA 1.5 GM in SODIUM CHLORIDE 0.9% 50 ML IV SCH ×3 (01:11→16:04)
[2022-04-20] MEDS: MORPHINE SULFATE 2 MG/ML SYRINGE IVP PRN (01:11)
[2022-04-20] MEDS: ERYTHROMYCIN 0.5% 3.5 GM TUBE OPHTHALMIC OINTMENT OU SCH ×3 (01:12→17:03)
[2022-04-20 04:00] VITALS: BP 116/73
[2022-04-20 07:50] VITALS: BP 121/66
[2022-04-20] MEDS: DOCUSATE SODIUM 100 MG CAPSULE PO SCH ×2 (08:40→20:27)
[2022-04-20] MEDS: LOSARTAN POTASSIUM 50 MG TABLET PO SCH ×2 (08:40→16:02)
[2022-04-20] MEDS: BUMETANIDE 0.25 MG/ML 4 ML VIAL IVP SCH (08:40)
[2022-04-20] MEDS: APIXABAN 5 MG TABLET PO SCH ×2 (08:41→20:27)
[2022-04-20] MEDS: METOPROLOL SUCCINATE 25 MG ER TABLET PO SCH ×2 (08:41→16:04)
[2022-04-20] MEDS: PANTOPRAZOLE SODIUM 40 MG DR TABLET PO SCH ×2 (08:41→16:01)
[2022-04-20 11:37] LABS: GLUCOMETER DEV NAME(LOC) 6N.1; GLUCOSE,POINT OF CARE 120 MG/DL (70-110)
[2022-04-20] MEDS: SPIRONOLACTONE 25 MG TABLET PO SCH ×2 (12:30→16:02)
[2022-04-20] MEDS: FUROSEMIDE 20 MG TABLET PO SCH ×2 (12:30→16:03)
[2022-04-20 15:27] VITALS: BP 136/94
[2022-04-20] MEDS: ETHYL ALCOHOL 62% ANTISEPTIC NASAL SANITIZER 0.6 ML AMPUL NASAL SCH (20:28)
[2022-04-20] MEDS: HYDROCODONE/ACETAMINOPHEN 5-325 MG TABLET PO PRN (20:29)
[2022-04-20 20:45] VITALS: BP 109/67
[2022-04-21] MEDS: AMPICILLIN SODIUM/SULBACTAM NA 1.5 GM in SODIUM CHLORIDE 0.9% 50 ML IV SCH ×3 (01:44→17:33)
[2022-04-21] MEDS: ERYTHROMYCIN 0.5% 3.5 GM TUBE OPHTHALMIC OINTMENT OU SCH ×3 (01:45→19:43)
[2022-04-21 04:43] VITALS: BP 124/62
[2022-04-21] MEDS ORDERED: BUME0.253 IM (06:15)
[2022-04-21] MEDS ORDERED: LOSA-382 PO (06:15)
[2022-04-21] MEDS ORDERED: SPIR-37 PO (06:15)
[2022-04-21] MEDS ORDERED: DOXY-354 PO (06:15)
[2022-04-21] MEDS ORDERED: METO25XL PO (06:15)
[2022-04-21 08:17] VITALS: BP 118/78
[2022-04-21] MEDS: APIXABAN 5 MG TABLET PO SCH ×2 (09:00→19:43)
[2022-04-21] MEDS: FUROSEMIDE 20 MG TABLET PO SCH (09:00)
[2022-04-21] MEDS: LOSARTAN POTASSIUM 50 MG TABLET PO SCH (09:00)
[2022-04-21] MEDS: METOPROLOL SUCCINATE 25 MG ER TABLET PO SCH (09:00)
[2022-04-21] MEDS: SPIRONOLACTONE 25 MG TABLET PO SCH (09:00)
[2022-04-21] MEDS: PANTOPRAZOLE SODIUM 40 MG DR TABLET PO SCH (09:00)
[2022-04-21] MEDS: DOCUSATE SODIUM 100 MG CAPSULE PO SCH ×2 (09:00→19:43)
[2022-04-21 10:42] VITALS: BP 110/68
[2022-04-21] MEDS: ETHYL ALCOHOL 62% ANTISEPTIC NASAL SANITIZER 0.6 ML AMPUL NASAL SCH ×2 (10:50→19:43)
[2022-04-21] MEDS: BUMETANIDE 0.25 MG/ML 4 ML VIAL IVP SCH (10:50)
[2022-04-21] MEDS ORDERED: LIDOCAINE/PF 1% 5 ML VIAL ONE (13:36)
[2022-04-21] MEDS ORDERED: ALBUMIN HUMAN 25%-50GM/200ML 200 ML IV ONE (14:30)
[2022-04-21 15:59] LABS: SPECIMENTYPE,BODY FLUID ASCITES
[2022-04-21 17:03] VITALS: BP 110/79
[2022-04-21 17:10] LABS: APPEARANCE,SPUN,BODY FLUID CLEAR (CLEAR); APPEARANCE,UNSPUN,BODY FLUID HAZY (CLEAR)
[2022-04-21 17:11] LABS: BASOPHILS,BODY FLUID 0 %; COLOR,BODY FLUID LT YELLOW (LT YELLOW); EOSINOPHILS,BF (ANAL) 0 %; LYMPHOCYTES,BODY FLUID 51 %; MONOCYTES,BODY FLUID 5 %; NEUTROPHILS,BODY FLUID 27 %; TOTAL VOLUME,BODY FLUID 4500 mL; WBC, BODY FLUID 118 /cu. mm.
[2022-04-21 17:14] LABS: OTHER CELLS,BODY FLUID MESOTHELIALS
[2022-04-21] MEDS ORDERED: SODIUM CHLORIDE 0.9% 250 ML IV ONE (17:35)
[2022-04-21 19:52] VITALS: BP 116/77
[2022-04-21] MEDS: MORPHINE SULFATE 2 MG/ML SYRINGE IVP PRN (23:41)
[2022-04-22] MEDS: ERYTHROMYCIN 0.5% 3.5 GM TUBE OPHTHALMIC OINTMENT OU SCH (01:19)
[2022-04-22] MEDS: AMPICILLIN SODIUM/SULBACTAM NA 1.5 GM in SODIUM CHLORIDE 0.9% 50 ML IV SCH ×2 (01:19→08:29)
[2022-04-22 07:53] VITALS: BP 124/71
[2022-04-22] MEDS: LOSARTAN POTASSIUM 50 MG TABLET PO SCH (08:29)
[2022-04-22] MEDS: FUROSEMIDE 20 MG TABLET PO SCH (08:29)
[2022-04-22] MEDS: SPIRONOLACTONE 25 MG TABLET PO SCH (08:29)
[2022-04-22] MEDS: ETHYL ALCOHOL 62% ANTISEPTIC NASAL SANITIZER 0.6 ML AMPUL NASAL SCH (08:29)
[2022-04-22] MEDS: PANTOPRAZOLE SODIUM 40 MG DR TABLET PO SCH (08:29)
[2022-04-22] MEDS: BUMETANIDE 0.25 MG/ML 4 ML VIAL IVP SCH (08:30)
[2022-04-22] MEDS: APIXABAN 5 MG TABLET PO SCH (08:30)
[2022-04-22] MEDS: METOPROLOL SUCCINATE 25 MG ER TABLET PO SCH (08:30)
[2022-04-22] MEDS: DOCUSATE SODIUM 100 MG CAPSULE PO SCH (08:30)
[2022-04-22] MEDS ORDERED: BUME1TAB34 PO (11:32)
== END 2022-04-22 10:10 | disposition home or self-care (01) | DRG 501 ==
LOC: EMS 15:45 → 6S 18:40
PROVIDERS: ADMIT Internal Medicine; ATTEND Internal Medicine
PROC: 0W9G3ZZ Drainage of Peritoneal Cavity, Percutaneous Approach (ICD-10-PCS; principal; 2022-04-20)
PROC: 0W9G3ZZ Drainage of Peritoneal Cavity, Percutaneous Approach (ICD-10-PCS; 2022-04-21)
DX: N45.3 Epididymo-orchitis (principal); R18.8 Other ascites; I48.20 Chronic atrial fibrillation, unspecified; I50.9 Heart failure, unspecified; I11.0 Hypertensive heart disease with heart failure; I25.10 Atherosclerotic heart disease of native coronary artery without angina pectoris; E11.9 Type 2 diabetes mellitus without complications; Z95.5 Presence of coronary angioplasty implant and graft; I25.2 Old myocardial infarction
CPT/HCPCS: 49083; 71046; 76870; 76942; 80048; 80053; 82962; 83880; 84484; 85025; 85610; 87040; 87081; 89051; 93005; 99285; J0295; J2001; J2270; J3490; J7030; J7050; P9046; 36415-L1; 36415-TC